=== PATIENT | male | born 1950 | race Caucasian/White ===

== ENCOUNTER 2019-04-22 08:39 | Inpatient (IN) ==
--- NOTE | 2019-04-22 11:39 | Emergency Department Note ---
Skin/Abscess/FB HPI - General Chief complaint: Skin/Abscess/Foreign Body Stated complaint: left hand cellulitis, worse Time Seen by Provider: 04/22/19 11:37 Source: patient Mode of arrival: ambulatory Limitations: no limitations - History of Present Illness HPI Narrative: This patient is rechecking cellulitis of his left hand. He was seen initially Sunday night and got some vancomycin I saw him Sunday morning and he was not much worse we continued Vanco and started Keflex and Bactrim and recheck in 2 days later he is much worse. I discussed the case with Dr. Ewing and we will admit him to the hospital Dr. Wells will see him in the hospital later today. - Related Data Home Medications Medication Instructions Recorded Confirmed Aspirin [Lo-Dose Aspirin EC] 81 mg PO DAILY 04/19/19 04/19/19 Atorvastatin [Lipitor] 20 mg PO HS 04/19/19 04/19/19 Furosemide [Lasix] 20 mg PO DAILY 04/19/19 04/19/19 Insulin Glargine, Human [Lantus] 15 unit SQ HS 04/19/19 04/19/19 Lisinopril [Zestril] 5 mg PO DAILY 04/19/19 04/19/19 Magnesium 250 mg PO 04/19/19 Topiramate [Trokendi Xr] 100 mg PO DAILY 04/19/19 04/19/19 amLODIPine [Norvasc] 10 mg PO DAILY 04/19/19 04/19/19 metFORMIN HCL [Metformin HCl] 1,000 mg PO DAILY 04/19/19 04/19/19 Previous Rx's Medication Instructions Recorded traMADol [Ultram] 50 mg PO Q6-8HP PRN #10 tab 04/19/19 Cephalexin [Keflex] 500 mg PO QID #30 cap 04/20/19 Sulfamethoxazole/Trimethoprim 1 tab PO BID #14 tab 04/20/19 [Bactrim Ds] Allergies Allergy/AdvReac Type Severity Reaction Status Date / Time No Known Drug Allergies Allergy Verified 04/22/19 08:41 Review of Systems All systems ED: reviewed and negative except as stated. Past Medical History - Past Medical History Medical history: Reports: no medical history - Social History smoking status: Former smoker Physical Exam Left hand shows swelling erythema of the dorsal aspect of the hand and fingers and a blister formation on the lateral aspect of the hand with some swelling of the thenar eminence. Limitations: no limitations General appearance: alert Head: atraumatic Neck: Present: normal inspection Neurological: Present: alert Psychiatric: Present: normal affect Skin: Present: warm, dry Course Vital Signs Temperature 97.1 F 04/22/19 08:39 Pulse Rate 88 04/22/19 08:39 Respiratory Rate 16 04/22/19 08:39 Blood Pressure 148/84 04/22/19 08:39 Pulse Oximetry (%) 100 04/22/19 08:39 Temperature 97.1 F 04/22/19 08:39 Pulse Rate 88 04/22/19 08:39 Respiratory Rate 16 04/22/19 08:39 Blood Pressure 148/84 04/22/19 08:39 Pulse Oximetry (%) 100 04/22/19 08:39 Skin/Abscess/Foreign Body - Lab Data Result diagrams: 04/22/19 11:27 04/22/19 11:27 Disposition Pt seen by POLYMER[employer]ATION OVEN TENDER/PA only: No Clinical Impression: Cellulitis Disposition: Xfer As Outpt/Obs (TS) Condition: Good Instructions: Cellulitis (ED) Referrals: Davey Hernandez MD [Primary Care Provider] - Time of Disposition: 11:39
--- NOTE | 2019-04-22 12:15 | Internal Med History&Physical ---
Medical - H&P: HPI Patient information: Note initiated : 04/22/19 at 12:15 pm Service Date, if different from initiated Date: [] Patient: Rayshawn Cho a 68 y/o M admitted on for left hand cellulitis, worse. Chief Complaint: Worsening hand erythema, edema and pain while on outpatient antibiotics History of present illness: Mr. Cho is a 68 year old M with a history of type 2 diabetes, hypertension, hypercholesterolemia who re-presents to the emergency department with worsening left hand symptoms. Patient injured his hand on , it became stuck between 2 metal cabinets. Pulled his hand out, had an open wound on the dorsum of the hand. That became swollen and painful with erythema. He was seen in the ED on Sunday, started on vancomycin as an outpatient for hand cellulitis. He returned on Sunday for a follow-up, at which point it appeared to be about the same and cephalexin and Bactrim were added to the regimen. He continued to come in to receive outpatient IV antibiotics. Yesterday, Sunday, he had worsening erythema, development of a blister at the base of the thumb as well as worsening edema down into the proximal fingers from the dorsum of the hand. He did have some proximal progression of erythema earlier, which has receded slightly. He is tried to keep his hand elevated when at rest. He is unable to flex his finger secondary to edema and pain. He had a fever up to 100.6 degrees yesterday. He had chills a few nights ago. He did have some nausea and vomiting after IV antibiotics yesterday. Has had decreased appetite. Said no diarrhea, no abdominal pain. Patient was told many years ago he may have had a remote myocardial infarction (he was not hospitalized, is unclear why that was thought), but he currently is active and has no chest tightness/squeezing/pressure symptoms and is not limited by dyspnea. No history of lung disease. He occasionally has trace lower extremity edema, particularly associated with an abrasion and cellulitis of his right di stal leg, which has now resolved. He has no history of congestive heart failure, no orthopnea. No history of COPD or other pulmonary disease. His diabetes is controlled with metformin and Lantus and glucose generally runs in the 120s. His last meal was about 8 PM last evening, he did have coffee at 7:00 this morning. No prior history of anesthesia reactions. He is being admitted for surgical debridement of left hand infection that has failed outpatient oral and IV antibiotics. All systems: reviewed and no additional remarkable complaints except as stated Medical - H&P: PMH Medical history: Type 2 diabetes mellitus Hypertension Hypercholesterolemia Migraine Thyroid nodules, next follow-up due 05/12 Surgical history: History of surgery in both feet History of arthroscopic knee surgery History of back surgery History of tonsillectomy Pertinent family history: Several cancers in the family, including breast and female cancers. No history of difficulty healing infections. Social history: Patient is , lives with his . He stopped smoking many years ago. He has a couple drinks on several evenings a week. Medical - H&P: Meds Home Medications Medication Instructions Recorded Confirmed Type Aspirin [Lo-Dose Aspirin EC] 81 mg PO DAILY 04/19/19 04/22/19 History Atorvastatin [Lipitor] 20 mg PO HS 04/19/19 04/22/19 History Furosemide [Lasix] 20 mg PO DAILY 04/19/19 04/22/19 History Insulin Glargine, Human [Lantus] 15 unit SQ HS 04/19/19 04/22/19 History Lisinopril [Zestril] 5 mg PO DAILY 04/19/19 04/22/19 History Magnesium 250 mg PO AC 04/19/19 04/22/19 History Topiramate [Trokendi Xr] 100 mg PO DAILY 04/19/19 04/22/19 History amLODIPine [Norvasc] 10 mg PO DAILY 04/19/19 04/22/19 History metFORMIN HCL [Metformin HCl] 1,000 mg PO DAILY 04/19/19 04/22/19 History traMADol [Ultram] 50 mg PO Q6-8HP PRN #10 tab 04/19/19 04/22/19 Rx Cephalexin [Keflex] 500 mg PO QID #30 cap 04/20/19 04/22/19 Rx Sulfamethoxazole/Trimethoprim 1 tab PO BID #14 tab 04/20/19 04/22/19 Rx [Bactrim Ds] Allergies Allergy/AdvReac Type Severity Reaction Status Date / Time diazepam [From Valium] AdvReac Verified 04/22/19 13:13 Medical - H&P: Exam - Constitutional Vitals: Temp Pulse Resp BP Pulse Ox 97.1 F 88 20 142/80 98 04/22/19 08:39 04/22/19 11:56 04/22/19 11:56 04/22/19 11:56 04/22/19 11:56 Exam: GENERAL: Alert, oriented, in no acute distress. Cooperative, appears stated age. HEENT: Atraumatic. PERRL at 3 mm, conjunctiva clear, no scleral icterus. Hearing grossly intact. Oropharynx with moist mucous membranes, no pharyngeal erythema or exudate. Tongue midline, palate rises symmetrically. NECK: Supple without meningismus RESPIRATORY: Breath sounds clear bilaterally without wheezes or rhonchi. Respiratory effort is unlabored. CARDIOVASCULAR: Regular rate and rhythm, no murmur gallop or rub. Trace peripheral edema. Carotid pulses 2+ without bruit. GI: Abdomen soft, nontender, no guarding or rebound. Bowel sounds are present. MUSCULOSKELETAL: Left hand with approximately 1 cm skin avulsion on mid dorsum, surrounding erythema and bruising, approximately 2 cm bullous lesion over the dorsal base of the thumb, edema palpable out to the proximal phalanx, particularly on the second third and fourth digits. Unable to flex the digits due to swelling. Radial pulse is 2+. SKIN: As above. Distal left leg with very small remnants of abrasion on the spencer. No surrounding erythema in the leg. NEUROLOGIC: Cranial nerves II through XII grossly intact. Muscle mass normal. Strength 5/5 in the upper and lower extremities. Sensation intact to light touch bilaterally. PSYCHIATRIC: Alert, oriented x3, normal mood and affect, normal insight. Medical - H&P: Reslt - Labs CBC & Chem 7: 04/22/19 11:27 04/22/19 11:27 Labs: Laboratory Results - last 24 hr 04/22/19 04/22/19 04/22/19 11:27 11:27 11:27 WBC 14.3 H RBC 4.24 L Hgb 12.7 L Hct 39.0 L MCV 92.0 MCH 30.0 MCHC 32.6 RDW 13.6 Plt Count 304 MPV 9.5 Gran % 74.0 Lymph % (Auto) 15.2 L [place] % (Auto) 8.2 Eos % (Auto) 2.0 Baso % (Auto) 0.6 Gran # 10.57 H Lymph # (Auto) 2.17 [place] # (Auto) 1.17 H Eos # (Auto) 0.28 Baso # (Auto) 0.08 PT 13.4 INR 1.0 VBG Lactic Acid Sodium 137 Potassium 4.2 Chloride 102 Carbon Dioxide 20 L Anion Gap 15.0 BUN 12 Creatinine 0.9 GFR Calculation 89 Glucose 112 H Calcium 9.7 Total Bilirubin 0.5 AST 14 ALT 15 Alkaline Phosphatase 69 Total Protein 7.5 Albumin 3.9 Globulin 3.6 Albumin/Globulin Ratio 1.1 04/22/19 11:27 WBC RBC Hgb Hct MCV MCH MCHC RDW Plt Count MPV Gran % Lymph % (Auto) [place] % (Auto) Eos % (Auto) Baso % (Auto) Gran # Lymph # (Auto) [place] # (Auto) Eos # (Auto) Baso # (Auto) PT INR VBG Lactic Acid 1.0 Sodium Potassium Chloride Carbon Dioxide Anion Gap BUN Creatinine GFR Calculation Glucose Calcium Total Bilirubin AST ALT Alkaline Phosphatase Total Protein Albumin Globulin Albumin/Globulin Ratio - EKG Data -: EKG Reviewed by Myself EKG shows normal: sinus rhythm, ST-T waves Rate: normal - Impressions Left hand film from 04/18, reviewed IMPRESSION: No fracture 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 Cellulitis of the left hand. Failing outpatient IV and oral antibiotics. Dr. Ewing from orthopedics has been consulted and plans surgical debridement. Patient without any pet exposures, suspect this is either related to staph or strep infection from skin break. Plan Inpatient admission N.p.o. Continue vancomycin, begin cefazolin for better strep and MSSA coverage Orthopedic consultation, called by the ED Superficial wound cultured, follow-up data and any intraoperative cultures. Preoperative clearance. Patient has been told he may have had a heart attack in the past. Currently he exerts himself regularly without any anginal symptoms. His EKG does not show evidence of old infarct. He has no history of congestive heart failure no history of lung disease. He does have cardiac risk factors of diabetes, hypertension and hypercholesterolemia, however at this point no further risk stratification needed. Type 2 diabetes. Controlled with metformin and Lantus. Hold metformin with acute illness Continue Lantus Sliding scale insulin, Accu-Cheks, diabetic diet postop Hypertension. On lisinopril and amlodipine. Continue home regimen. Hypercholesterolemia. On statin. Continue atorvastatin CODE STATUS: Full code Prophylaxis: Lovenox ordered for postop administration.
[2019-04-22 12:24] LABS: Basophils # (Auto) 0.08 K/mcL (0.00-0.30); Basophils % (Auto) 0.6 % (0.0-2.0); Eosinophils # (Auto) 0.28 K/mcL (0.00-0.70); Hemoglobin 12.7 g/dL (13.7-17.5); Lymphocytes # (Auto) 2.17 K/mcL (1.50-4.80); Lymphocytes % (Auto) 15.2 % (15.5-49.0); Mean Corpuscular HGB Conc 32.6 g/dL (31.0-36.0); Mean Platelet Volume 9.5 fL (7.4-10.4); Monocytes # (Auto) 1.17 K/mcL (0.10-0.90); Monocytes % (Auto) 8.2 % (1.0-12.0); Platelet Count 304 K/mcL (140-440); RBC 4.24 M/mcL (4.63-6.08); Red Cell Distribution Width 13.6 % (11.5-14.5); WBC 14.3 K/mcL (4.50-11.00)
[2019-04-22] MEDS ORDERED: VANCOMYCIN PER PHARMACY IV SCH (12:25)
[2019-04-22] MEDS ORDERED: ceFAZolin 2 GM in DEXTROSE 5% IN WATER 50 ML IV SCH (12:25)
[2019-04-22] MEDS ORDERED: HYDROcodone/APAP 5/325MG TABLET PO PRN (12:25)
[2019-04-22] MEDS ORDERED: ONDANSETRON 4 MG/2 ML VIAL IV PRN ×3 (12:25→19:55)
[2019-04-22] MEDS ORDERED: ACETAMINOPHEN 325 MG TABLET PO PRN (12:25)
[2019-04-22] MEDS ORDERED: DEXTROSE 50% 50 ML VIAL IV PRN (12:25)
[2019-04-22] MEDS ORDERED: DEXTROSE 31 GM ORAL.SUSP PO PRN (12:25)
[2019-04-22 12:30] LABS: Prothrombin Time 13.4 sec (11.9-14.5)
[2019-04-22 12:34] LABS: ALT/SGPT 15 U/l (0-40); AST/SGOT 14 U/l (0-37); Albumin 3.9 gm/dL (3.2-5.2); Albumin/Globulin Ratio 1.1 (1.0-2.3); Alkaline Phosphatase 69 U/L (39-117); Bilirubin,Total 0.5 mg/dL (0.0-1.0); Blood Urea Nitrogen 12 mg/dl (8-23); Calcium 9.7 mg/dl (8.6-10.4); Carbon Dioxide 20 mmol/L (22-30); Chloride 102 mmol/L (96-108); Globulin 3.6 gm/dL (2.2-3.7); Glomerular Filtration Rate 89; Glucose 112 mg/dL (70-105)
--- NOTE | 2019-04-22 13:13 | Orthopedic Consult Note ---
History of Present Illness - [facility] Patient information: Note initiated : 04/22/19 at 1:07 pm Service Date, if different from initiated Date: [] Patient: Rayshawn Cho 68 y/o M admitted on 04/22/19 for left hand cellulitis, worse. Chief Complaint: right hand pain Consult date: 04/22/19 Requesting physician: Leroy Larson Consult reason: other (right hand pain/swelling) History of present illness: Mr. Cho is a 68 yo male who states he was trying to get a roaster melchor out of the garage on 04/16/19 when his left hand got caught between two cabinets. He states he quickly pulled his hand out resulting in two wounds on the dorsal aspect of his hand. He states he washed these wounds at home and placed a bandaid over them. He noticed his hand start to become red and swollen over the next two days, resulting in a trip to the [facility] ER on 04/19/19. He states he was given IV antibiotics and sent home. He went in for recheck the following day 04/20/19 where he was given a different antibiotic. Since injury he states his hand has become worse and now the pain and swelling is moving to his wrist and into his forearm. He states he felt like he had fevers/chills once or twice over the past day or two. He denies other injuries this afternoon, denies CP, SOB, N/V, abd pain. Review of Systems All systems PM: reviewed and no additional remarkable complaints except as stated (as noted in HPI.) Past History Past medical history: Significant for HTN, hypercholesterolemia, diabetes mellitus type II Past surgical history: tonsillectomy right knee arthroscopy with meniscectomy bilateral foot surgery lumbar spine surgery Past family history: no pertinent family history Past social history: Past smoker. Quit: 1-2 alcoholic drinks/night. No illicit/recreational drug use. Medications and Allergies Home Medications Medication Instructions Recorded Confirmed Type Aspirin [Lo-Dose Aspirin EC] 81 mg PO DAILY 04/19/19 04/19/19 History Atorvastatin [Lipitor] 20 mg PO HS 04/19/19 04/19/19 History Furosemide [Lasix] 20 mg PO DAILY 04/19/19 04/19/19 History Insulin Glargine, Human [Lantus] 15 unit SQ HS 04/19/19 04/19/19 History Lisinopril [Zestril] 5 mg PO DAILY 04/19/19 04/19/19 History Magnesium 250 mg PO 04/19/19 History Topiramate [Trokendi Xr] 100 mg PO DAILY 04/19/19 04/19/19 History amLODIPine [Norvasc] 10 mg PO DAILY 04/19/19 04/19/19 History metFORMIN HCL [Metformin HCl] 1,000 mg PO DAILY 04/19/19 04/19/19 History traMADol [Ultram] 50 mg PO Q6-8HP PRN #10 tab 04/19/19 Rx Cephalexin [Keflex] 500 mg PO QID #30 cap 04/20/19 Rx Sulfamethoxazole/Trimethoprim 1 tab PO BID #14 tab 04/20/19 Rx [Bactrim Ds] Allergies Allergy/AdvReac Type Severity Reaction Status Date / Time diazepam [From Valium] AdvReac Verified 04/22/19 13:13 Physical Examination - Wrist & Hand right Location of pain: dorsal wrist, dorsal hand Wrist pain modifiers: with motion, with activity Symptoms: wrist swelling, wrist stiffness, dorsal hand swelling, palmar hand swelling, hand stiffness, hand weakness, tingling in ring, small fingers, other (tingling in all fingers except the thumb.) Appearance: wrist redness, wrist erythema, wrist warmth (diffuse), hand redness, hand erythema (isolated to dorsal aspect of hand/digits/wrist), hand warmth (diffuse), laceration (two dorsal hand wounds, lateral has scab, medial is subacute, open with expressible serous drainage. No purulence or fluctuance noted. ), other (large blister over thenar eminence. Diffuse edema about entire hand both palmar/dorsal.) Wound/scarring location: medial dorsal hand wound is approx dime sized, 4 mm deep Tenderness with palpation: dorsal wrist, volar wrist, dorsal hand, volar hand, other (Positive TTP over entire dorsal hand, wrist, and forearm. No TTP at the elbow.) Full ROM: wrist: yes (near full ROM though painful) ROM: thumb MP joint: 0 degrees ROM: thumb IP joint: normal (he is unable to make a full fist or flat hand due to edema. Full nonpainful ROM at elbow.) Assessment and Plan (1) Abscess of hand, left Pt is a 68 yo male 6 days out from initial laceration/wounds to the left hand resulting in a left hand abscess and cellulitis that has not improved with IV antibiotics. Wound culture was obtained in the ER today. Discussed the condition and treatment options with the pt today with recommendation for surgical irrigation and debridement of the left hand abscess and extensor tendons and insertion of wound drain followed by IV abx and continued hospitalization. Spoke with Dr. Ewing who agrees with the plan. Pt was in agreement and would like to continue with surgery. Discussed the risks associated with surgery which include but are not limited to: problems with anesthesia, problems with the heart or lungs related to anesthesia, DVT, PE, ongoing pain/swelling after surgery, infection, need for repeat surgery, failure of hardware and . He wishes to proceed with surgery. Plan will be for left hand abscess I&D along with debridement of extensor tendons. Pt understands and agrees with the plan. His questions were answered. Status: Acute
[2019-04-22] MEDS: 0.9 % SODIUM CHLORIDE 1,000 ML IV SCH (13:22)
[2019-04-22] MEDS ORDERED: VANCOMYCIN 1,000 MG in 0.9 % SODIUM CHLORIDE 250 ML IV ONE (13:45)
[2019-04-22] MEDS: 0.9 % SODIUM CHLORIDE 10 ML SYRINGE IV SCH ×2 (14:37→21:35)
[2019-04-22] MEDS: ceFAZolin 1 GM VIAL IV SCH ×2 (14:45→21:34)
[2019-04-22 16:19] LABS: Appearance,Urine CLEAR; Bacteria,Urine 0 /hpf (0); Bilirubin,Urine NEG (NEG); Color,Urine YELLOW; Culture Indicated,Urine NO; Glucose,Urine (UA) NEGATIVE (NEG); Ketones,Urine 5/TR mg/dL (NEG); Leukocyte Esterase,Urine NEG /uL (NEG); Mucus,Urine FEW /hpf (0); Nitrate,Urine NEG (NEG); Protein,Urine 30 mg/dL (NEG); Specific Gravity,Urine 1.016 (1.000-1.035); Urine Blood NEG mg/dL (<0.03); Urine RBC 2 /hpf (0-1); Urine Squamous Epithelial Cell 0 /hpf (0-4); Urine WBC 1 /hpf (0-4)
[2019-04-22] MEDS: INSULIN LISPRO 1 UNIT/0.01 ML UNIT SQ SCH ×2 (16:35→21:28)
[2019-04-22] MEDS ORDERED: PROPOFOL 200 MG/20 ML VIAL IV ONE (18:38)
[2019-04-22] MEDS ORDERED: ONDANSETRON 4 MG/2 ML VIAL ONE (18:38)
[2019-04-22] MEDS ORDERED: fentaNYL 100 MCG/2 ML VIAL IV ONE (18:38)
[2019-04-22] MEDS ORDERED: DEXAMETHASONE 10 MG/ML VIAL ONE (18:38)
[2019-04-22] MEDS ORDERED: MIDAZOLAM 5 MG/5 ML VIAL ONE (18:38)
[2019-04-22] MEDS ORDERED: LIDOCAINE HCL/PF 100 MG/5 ML SYRINGE IV ONE (18:38)
[2019-04-22] MEDS ORDERED: IPRATROPIUM/ALBUTEROL 3 ML AMPUL.NEB NEB PRN (19:21)
[2019-04-22] MEDS ORDERED: MEPERIDINE 25 MG/ML SYRINGE IV PRN (19:21)
[2019-04-22] MEDS ORDERED: ATROPINE SULFATE 0.4 MG/ML VIAL IV PRN (19:21)
[2019-04-22] MEDS ORDERED: fentaNYL 100 MCG/2 ML VIAL IV PRN (19:21)
[2019-04-22] MEDS ORDERED: METOPROLOL TARTRATE 5 MG/5 ML VIAL IV PRN (19:21)
[2019-04-22] MEDS ORDERED: diphenhydrAMINE 50 MG/ML VIAL IV PRN (19:21)
[2019-04-22] MEDS ORDERED: FLUMAZENIL 0.1 MG/ML ML IV PRN (19:21)
[2019-04-22] MEDS ORDERED: ACETAMINOPHEN 1,000 MG/100 ML BOTTLE IV ONE ×2 (19:21→19:50)
[2019-04-22] MEDS ORDERED: ePHEDrine 50 MG/ML AMPUL IV PRN (19:21)
[2019-04-22] MEDS ORDERED: NALOXONE HCL 0.4 MG/ML VIAL IV PRN (19:21)
[2019-04-22] MEDS ORDERED: METHOCARBAMOL 1,000 MG/10 ML VIAL IV PRN (19:21)
[2019-04-22] MEDS ORDERED: LACTATED RINGERS 1,000 ML IV SCH (19:30)
[2019-04-22] MEDS ORDERED: BENZOCAINE/MENTHOL 1 LOZENGE PO PRN (19:55)
--- NOTE | 2019-04-22 20:06 | Discharge Summary ---
Ortho Discharge Plan - General - Patient Instructions Diet: Consistent Carbohydrate Activity: activity as tolerated Dressing Care: Cover dressing in shower Patient Education: Cellulitis (ED) - Follow Up Plan Follow Up Appointments: Davey Hernandez MD [Primary Care Provider] - Rebel Ewing MD [Physician] - 04/29/19 (Follow up ANTONY 04/29/19) Disposition: Home, Self-Care Prognosis: Good Rehab Potential: Good I certify that the patient requires SNF services: No Overall status at discharge: patient is back to baseline - Orders For Discharge Prescriptions: Hydrocodone/APAP 7.5/325Mg [[place] 7.5-325Mg] 1 - 2 tab PO Q4-6HP PRN #65 tab PRN Reason: Pain
--- NOTE | 2019-04-22 20:09 | Brief Operative Note ---
Date of procedure: 04/22/19 Pre-op diagnosis: L Hand Dorsal Abscess, L Hand Suppurative Extensor Tenosynovitis Post-op diagnosis: same Procedure: 1. Debridement and irrigation of left hand deep dorsal abscess 2. Debridement and irrigation of left hand extensor tendon sheath Grafts/Implants: No Anesthesia: GLMA Findings: as above Complications: none Surgeon: Rebel Ewing Workforce Staffing Advisor: Josep Estrada Estimated blood loss (cc): 6 Tourniquet Time (Minutes): 32 Specimens Removed/Pathology: other (Aerobic/Anaerobic cultures left hand deep dorsal abscess) Condition: stable Disposition: PACU
[2019-04-22] MEDS ORDERED: MEPERIDINE 50 MG/ML INJECTION ONE (20:12)
[2019-04-22] MEDS ORDERED: INSULIN GLARGINE, HUMAN 1 UNIT/0.01 ML SQ SCH (21:00)
[2019-04-22] MEDS: ATORVASTATIN 20 MG TABLET PO SCH (21:25)
[2019-04-22] MEDS: SENNOSIDES 1 TABLET PO SCH (21:25)
[2019-04-22] MEDS: DOCUSATE SODIUM 100 MG CAPSULE PO SCH (21:25)
[2019-04-22] MEDS: VANCOMYCIN 1,500 MG in 0.9 % SODIUM CHLORIDE 500 ML IV SCH (21:38)
[2019-04-22] MEDS ORDERED: 0.9 % SODIUM CHLORIDE 10 ML SYRINGE IV SCH (22:00)
[2019-04-23] MEDS: HYDROCODONE/APAP 7.5/325MG TABLET PO PRN ×4 (04:02→21:27)
[2019-04-23] MEDS: ceFAZolin 1 GM VIAL IV SCH ×3 (06:12→21:14)
[2019-04-23] MEDS: 0.9 % SODIUM CHLORIDE 10 ML SYRINGE IV SCH ×3 (06:13→21:14)
[2019-04-23 06:34] LABS: Basophils # (Auto) 0.03 K/mcL (0.00-0.30); Basophils % (Auto) 0.2 % (0.0-2.0); Eosinophils # (Auto) 0.01 K/mcL (0.00-0.70); Eosinophils % (Auto) 0.1 % (0.0-7.0); Granulocytes % (Auto) 89.9 % (38.0-78.0); Hematocrit 38.1 % (40.1-51.0); Hemoglobin 12.4 g/dL (13.7-17.5); Lymphocytes # (Auto) 0.93 K/mcL (1.50-4.80); Lymphocytes % (Auto) 6.9 % (15.5-49.0); Mean Cell Volume 93.2 fL (80.0-100.0); Mean Corpuscular HGB Conc 32.5 g/dL (31.0-36.0); Mean Platelet Volume 9.8 fL (7.4-10.4); Monocytes # (Auto) 0.39 K/mcL (0.10-0.90); Monocytes % (Auto) 2.9 % (1.0-12.0); Platelet Count 303 K/mcL (140-440); RBC 4.09 M/mcL (4.63-6.08); Red Cell Distribution Width 13.5 % (11.5-14.5); WBC 13.4 K/mcL (4.50-11.00)
[2019-04-23 06:45] LABS: Blood Urea Nitrogen 15 mg/dl (8-23); Calcium 9.1 mg/dl (8.6-10.4); Carbon Dioxide 16 mmol/L (22-30); Chloride 104 mmol/L (96-108); Glomerular Filtration Rate 93; Glucose 252 mg/dL (70-105)
[2019-04-23] MEDS: ENOXAPARIN 40 MG/0.4 ML SYRINGE SQ SCH (08:52)
[2019-04-23] MEDS: INSULIN LISPRO 1 UNIT/0.01 ML UNIT SQ SCH ×4 (08:53→21:26)
[2019-04-23] MEDS: INSULIN GLARGINE, HUMAN 1 UNIT/0.01 ML SQ SCH (08:53)
[2019-04-23] MEDS: LISINOPRIL 5 MG TABLET PO SCH (08:54)
[2019-04-23] MEDS: 0.9 % SODIUM CHLORIDE 1,000 ML IV SCH ×2 (08:54→14:41)
[2019-04-23] MEDS: amLODIPine 10 MG TABLET PO SCH (08:54)
[2019-04-23] MEDS: DOCUSATE SODIUM 100 MG CAPSULE PO SCH ×2 (08:54→21:13)
[2019-04-23] MEDS: TOPIRAMATE 100 MG PO SCH (08:55)
--- NOTE | 2019-04-23 09:51 | Orthopedic Progress Note ---
Subjective Patient information: Note initiated : 04/23/19 at 9:51 am Service Date, if different from initiated Date: [] Patient: Rayshawn Cho 68 y/o M admitted on 04/22/19 for left hand cellulitis. He is POD#1 s/p left hand abscess I&D along with extensor tendon debridement with Dr. Ewing. His pain is managed this AM and states he is feeling better. Denies SOB, CP, N/V, abd pain. States the tingling in his fingers is much better this AM as well. Denies new complaints overnight. Chief Complaint: right hand pain. Pertinent ROS: negative except per HPI. Objective Vital signs: Vital Signs Temp Pulse Pulse Pulse Resp BP BP 04/23/19 03:55 97.3 F 65 16 04/22/19 23:36 80 16 04/22/19 21:36 79 04/22/19 21:21 79 04/22/19 21:07 78 04/22/19 20:51 75 04/22/19 20:36 74 04/22/19 20:35 98.8 F 74 16 04/22/19 20:30 98.4 F 75 18 04/22/19 20:14 98.4 F 77 12 04/22/19 20:09 98.6 F 79 15 04/22/19 20:04 98.5 F 79 17 04/22/19 20:00 04/22/19 19:59 98.1 F 85 15 04/22/19 19:54 98.6 F 76 16 04/22/19 16:00 97.8 F 84 16 04/22/19 12:34 97.8 F 83 16 134/78 04/22/19 12:20 97.8 F 83 18 04/22/19 12:19 97.1 F 88 20 142/80 04/22/19 11:56 88 20 142/80 BP Pulse Ox 04/23/19 03:55 132/78 96 04/22/19 23:36 130/69 91 04/22/19 21:36 129/71 95 04/22/19 21:21 131/69 96 04/22/19 21:07 129/73 96 04/22/19 20:51 148/77 96 04/22/19 20:36 136/79 95 04/22/19 20:35 136/79 95 04/22/19 20:30 131/66 95 04/22/19 20:14 122/61 94 04/22/19 20:09 134/69 95 04/22/19 20:04 137/64 95 04/22/19 20:00 96 04/22/19 19:59 132/64 94 04/22/19 19:54 141/76 96 04/22/19 16:00 144/79 97 04/22/19 12:34 97 04/22/19 12:20 134/78 97 04/22/19 12:19 98 04/22/19 11:56 98 Intake and Output 04/22/19 04/23/19 04/23/19 21:59 05:59 13:59 Intake Total 539 840 480 Output Total 1075 1300 Balance -536 -460 480 Intake: IV 539 640 Sodium Chloride 0.9% 1,000 ml @ 360 640 75 mls/hr IV .[id number] [facility] Rx#: [id number] Vancomycin 1,000 mg In Sodium 79 Chloride 0.9% 250 ml @ 250 mls/ hr IV ONCE ONE Rx#:[id number] Oral 200 480 Output: Void Amount 1075 1300 Other: Urine Appearance Clear Urine Color Dark Yellow Urine Odor Strong Weight 265 lb 12.8 oz Intake & Output: Intake & Output 04/22/19 04/23/19 04/23/19 21:59 05:59 13:59 Intake Total 539 840 480 Output Total 1075 1300 Balance -536 -460 480 Weight 265 lb 12.8 oz Intake: IV 539 640 Sodium Chloride 0.9% 1,000 ml @ 360 640 75 mls/hr IV .[id number] [facility] Rx#: [id number] Vancomycin 1,000 mg In Sodium 79 Chloride 0.9% 250 ml @ 250 mls/ hr IV ONCE ONE Rx#:[id number] Oral 200 480 Output: Void Amount 1075 1300 Other: Urine Appearance Clear Urine Color Dark Yellow Urine Odor Strong Dressing: Yes clean, Yes dry, Yes intact, Yes splint in place Weight bearing status: non (with LUE) Neurological exam IM: Yes alert, Yes oriented X3, Yes neurovascular intact Extremities exam IM: No calf tenderness, Yes normal capillary refill, No Freddie's sign, Yes neurovascular intact - Labs CBC & BMP: 04/23/19 04:55 01/01/20 04:55 Labs: Orthopedic Labs 04/22/19 11:27 PT 13.4 INR 1.0 04/23/19 04/22/19 04:55 11:27 Hgb 12.4 L 12.7 L Hct 38.1 L 39.0 L Assessment and Plan (1) Abscess of hand, left Status: Acute - Narrative A/P Narrative: Pt is a 68 yo male POD#1 s/p left hand abscess I&D along with extensor tendon debridement with Dr. Ewing. We will plan on continued hospitalization over the next few days for continued IV abx while intraoperative wound culture is pending. Currently receiving Ancef. Hospitalist also following and will defer final abx to hospitalist pending culture results. WBC trending downwards this AM at 13.4. --activity as tolerated, NWB with LUE. --keep splint in place, keep clean and dry. --continue pain medications --continue CC diet. --prophy: IS, SCDs, ambulation, Lovenox. --dispo: home when infection controlled.
[2019-04-23] MEDS: VANCOMYCIN 1,500 MG in 0.9 % SODIUM CHLORIDE 500 ML IV SCH ×2 (10:50→21:12)
[2019-04-23] MEDS: HYDROmorphone 2 MG/ML VIAL IV PRN ×2 (13:26→17:00)
--- NOTE | 2019-04-23 16:03 | Orthopedic Progress Note ---
Subjective Patient information: Note initiated : 04/23/19 at 4:01 pm Service Date, if different from initiated Date: [] Patient: Rayshawn Cho 68 y/o M admitted on 04/22/19 for left hand cellulitis. Chief Complaint: [] Principal diagnosis: Left dorsal hand deep abscess, suppurative extensor tenosynovitis Interval history: Patient doing well, good pain control. No fevers or chills. Taking po well Objective Vital signs: Vital Signs Temp Pulse Resp BP Pulse Ox 04/23/19 12:00 97.8 F 72 16 123/66 94 04/23/19 10:03 94 04/23/19 08:00 97.5 F 77 16 137/77 96 04/23/19 03:55 97.3 F 65 16 132/78 96 04/22/19 23:36 80 16 130/69 91 04/22/19 21:36 79 129/71 95 04/22/19 21:21 79 131/69 96 04/22/19 21:07 78 129/73 96 04/22/19 20:51 75 148/77 96 04/22/19 20:36 74 136/79 95 04/22/19 20:35 98.8 F 74 16 136/79 95 04/22/19 20:30 98.4 F 75 18 131/66 95 04/22/19 20:14 98.4 F 77 12 122/61 94 04/22/19 20:09 98.6 F 79 15 134/69 95 04/22/19 20:04 98.5 F 79 17 137/64 95 04/22/19 20:00 96 04/22/19 19:59 98.1 F 85 15 132/64 94 04/22/19 19:54 98.6 F 76 16 141/76 96 Intake and Output 04/23/19 04/23/19 04/23/19 05:59 13:59 21:59 Intake Total 1340 1040 1300 Output Total 1300 Balance 40 1040 1300 Intake: IV 1140 500 Sodium Chloride 0.9% 1,000 ml @ 640 75 mls/hr IV .[id number] [facility] Rx#: [id number] Vancomycin 1,500 mg In Sodium 500 500 Chloride 0.9% 500 ml @ 333.3 mls/hr IV Q12H [facility] Rx#: [id number] Oral 200 1040 800 Output: Void Amount 1300 Other: Meal Breakfast Percent of Meal Consumed 100% Feeding Ability Independent Intake & Output: Intake & Output 04/23/19 04/23/19 04/23/19 05:59 13:59 21:59 Intake Total 1340 1040 1300 Output Total 1300 Balance 40 1040 1300 Intake: IV 1140 500 Sodium Chloride 0.9% 1,000 ml @ 640 75 mls/hr IV .[id number] [facility] Rx#: [id number] Vancomycin 1,500 mg In Sodium 500 500 Chloride 0.9% 500 ml @ 333.3 mls/hr IV Q12H [facility] Rx#: [id number] Oral 200 1040 800 Output: Void Amount 1300 Other: Meal Breakfast Percent of Meal Consumed 100% Feeding Ability Independent Dressing: Yes clean, Yes dry, Yes intact, Yes splint in place Weight bearing status: as tolerated Neurological exam IM: Yes alert, Yes oriented X3, Yes neurovascular intact - Labs CBC & BMP: 04/23/19 04:55 04/23/19 04:55 Labs: Orthopedic Labs 04/22/19 11:27 PT 13.4 INR 1.0 04/23/19 04/22/19 04:55 11:27 Hgb 12.4 L 12.7 L Hct 38.1 L 39.0 L Assessment and Plan - Narrative A/P Narrative: POD #1 s/p I&D left dorsal hand abscess and extensor tendon sheath doing well. Good pain control. Plan: 1. Continue IV antibiotics as per Hospitalist 2. Dressing change and drain removal 04/25/19 3. Consider D/C 04/25/19
--- NOTE | 2019-04-23 16:34 | Internal Med Progress Note ---
Medical - PN: Subj Patient information: Note initiated : 04/23/19 at 4:31 pm Service Date, if different from initiated Date: [] Patient: Rayshawn Cho a 68 y/o M admitted on 04/22/19 for left hand cellulitis, worse. Chief Complaint: f/u hand infection Interval history: 04/22 Mr. Cho is a 68 year old M with a history of type 2 diabetes, hypertension, hypercholesterolemia who re-presents to the emergency department with worsening left hand symptoms. Patient injured his hand on , it became stuck between 2 metal cabinets. Pulled his hand out, had an open wound on the dorsum of the hand. That became swollen and painful with erythema. He was seen in the ED on Sunday, started on vancomycin as an outpatient for hand cellulitis. He returned on Sunday for a follow-up, at which point it appeared to be about the same and cephalexin and Bactrim were added to the regimen. He continued to come in to receive outpatient IV antibiotics. Yesterday, Sunday, he had worsening erythema, development of a blister at the base of the thumb as well as worsening edema down into the proximal fingers from the dorsum of the hand. He did have some proximal progression of erythema earlier, which has receded slightly. He is tried to keep his hand elevated when at rest. He is unable to flex his finger secondary to edema and pain. He had a fever up to 100.6 degrees yesterday. He had chills a few nights ago. He did have some nausea and vomiting after IV antibiotics yesterday. Has had decreased appetite. Said no diarrhea, no abdominal pain. Patient was told many years ago he may have had a remote myocardial infarction (he was not hospitalized, is unclear why that was thought), but he currently is active and has no chest tightness/squeezing/pressure symptoms and is not limited by dyspnea. No history of lung disease. He occasionally has trace lower extremity edema, particularly associated with an abrasion and cellulitis of his right distal leg, which has now resolved. He has no history of congestive heart failure, no orthopnea. No history of COPD or other pulmonary disease. His d iabetes is controlled with metformin and Lantus and glucose generally runs in the 120s. 04/23/2019 Doing well this afternoon, pain is controlled. No fevers. - Constitutional Vitals: Vital Signs Temp Pulse Resp BP Pulse Ox 97.8 F 72 16 123/66 94 04/23/19 12:00 04/23/19 12:00 04/23/19 12:00 04/23/19 12:00 04/23/19 12:00 Period Temp Pulse Resp BP Sys/Tomas Pulse Ox Last 24 Hr 97.3 F-98.8 F 65-85 12-18 122-148/61-79 91-96 Intake and Output 04/23/19 04/23/19 04/23/19 05:59 13:59 21:59 Intake Total 1340 1040 1300 Output Total 1300 Balance 40 1040 1300 Intake & Output: Intake & Output 04/23/19 04/23/19 04/23/19 05:59 13:59 21:59 Intake Total 1340 1040 1300 Output Total 1300 Balance 40 1040 1300 Intake: IV 1140 500 Sodium Chloride 0.9% 1,000 ml @ 640 75 mls/hr IV .[id number] [facility] Rx#: [id number] Vancomycin 1,500 mg In Sodium 500 500 Chloride 0.9% 500 ml @ 333.3 mls/hr IV Q12H [facility] Rx#: [id number] Oral 200 1040 800 Output: Void Amount 1300 Other: Meal Breakfast Percent of Meal Consumed 100% Feeding Ability Independent Exam: General: No acute distress Chest: Clear Cardiovascular: Regular Abdomen: Soft, active bowel sounds Extremities: Left upper extremity with surgical dressings on. Fingers warm and perfused, touch intact Neuro: Alert, oriented x3, nonfocal Medical - PN: Obj Da - Labs CBC & Chem 7: 04/23/19 04:55 04/23/19 04:55 Labs: Abnormal Lab Results 04/23/19 04/23/19 04/22/19 04:55 04:55 15:46 WBC 13.4 H RBC 4.09 L Hgb 12.4 L Hct 38.1 L Gran % 89.9 H Lymph % (Auto) 6.9 L Gran # 12.03 H Lymph # (Auto) 0.93 L Fannin # (Auto) Carbon Dioxide 16 L Glucose 252 H Urine Protein 30 A Urine Ketones 5/tr A Urine Urobilinogen 4.0 A Urine RBC 2 H 04/22/19 04/22/19 11:27 11:27 WBC 14.3 H RBC 4.24 L Hgb 12.7 L Hct 39.0 L Gran % Lymph % (Auto) 15.2 L Gran # 10.57 H Lymph # (Auto) Fannin # (Auto) 1.17 H Carbon Dioxide 20 L Glucose 112 H Urine Protein Urine Ketones Urine Urobilinogen Urine RBC Microbiology 04/22/19 19:10 Gram Stain - Final Hand - Left Abscess Culture - Preliminary 04/22/19 12:57 Gram Stain - Final Hand - Left Wound Culture - Preliminary 04/22/19 19:10 Gram Stain - Final Abscess - Left Anaerobic Culture - Preliminary Meds: Medications Acetaminophen (Tylenol) 650 mg PO Q6HP PRN; Protocol PRN Reason: Per Pain Protocol/Fever > 101 Hydrocodone Bitart/Acetaminophen (Taft 7.5/325mg) 0 tab PO Q4HP PRN; Protocol PRN Reason: Per Pain Protocol Last Admin: 04/23/19 15:12 Dose: 2 tab Documented by: Amlodipine Besylate (Norvasc) 10 mg PO DAILY [facility] Last Admin: 04/23/19 08:54 Dose: 10 mg Documented by: Atorvastatin Calcium (Lipitor) 20 mg PO HS [facility] Last Admin: 04/22/19 21:25 Dose: 20 mg Documented by: Cefazolin Sodium (Ancef) 2 gm IV Q8H [facility] Last Admin: 04/23/19 13:20 Dose: 2 gm Documented by: Dextrose (Dextrose 50%) 0 ml IV UD PRN PRN Reason: Hypoglycemia Diagnostic Test (Pha) (Accu-Chek) 1 each FS ACHS [facility] Last Admin: 04/23/19 11:45 Dose: 1 each Documented by: Docusate Sodium (Colace) 100 mg PO BID [facility] Last Admin: 04/23/19 08:54 Dose: 100 mg Documented by: Enoxaparin Sodium (Lovenox) 40 mg SQ DAILY [facility] Last Admin: 04/23/19 08:52 Dose: 40 mg Documented by: Glucose (Insta-Glucose) 15 gm PO PRN PRN PRN Reason: Hypoglycemia Hydromorphone HCl (Dilaudid) 0 mg IV Q2HP PRN; Protocol PRN Reason: Per Pain Protocol Last Admin: 04/23/19 13:26 Dose: 1 mg Documented by: Sodium Chloride (Sodium Chloride 0.9%) 1,000 mls @ 75 mls/hr IV .[id number] [facility] Last Admin: 04/23/19 14:41 Dose: Not Given Documented by: Vancomycin HCl 1,500 mg/ (Sodium Chloride) 500 mls @ 333.3 mls/hr IV Q12H [facility] Last Infusion: 04/23/19 14:44 Dose: Infused Documented by: Insulin Glargine (Lantus) 15 unit SQ DAILY [facility] Last Admin: 04/23/19 08:53 Dose: 15 units Documented by: Insulin Human Lispro (Humalog) 0 unit SQ ACHS [facility]; Protocol Last Admin: 04/23/19 12:28 Dose: 8 units Documented by: Lisinopril (Zestril) 5 mg PO DAILY [facility] Last Admin: 04/23/19 08:54 Dose: 5 mg Documented by: Morphine Sulfate (Morphine) 4 mg IV Q4HP PRN; Protocol PRN Reason: Per Pain Protocol Last Admin: 04/22/19 13:29 Dose: 4 mg Documented by: Ondansetron HCl (Zofran) 4 mg IV Q4HP PRN; Protocol PRN Reason: Nausea And Vomiting Topiramate [Trokendi (Xr] 100 Mg Tab) 1 dose PO DAILY [facility] Last Admin: 04/23/19 08:55 Dose: Not Given Documented by: Senna (Senokot) 2 tab PO HS [facility] Last Admin: 04/22/19 21:25 Dose: 2 tab Documented by: Sodium Chloride (Saline Flush) 10 ml IV Q8 [facility] Last Admin: 04/23/19 13:27 Dose: Not Given Documented by: Throat Lozenges (Cepacol) 1 lozenge PO PRN PRN PRN Reason: Sore Throat Vancomycin HCl (Vancomycin Per Pharmacy) 1 order IV UD [facility]; Protocol Medical - PN: A/P - Time Spent With Patient Total time spent is greater than 50% in coordination of care (as documented) at patient's floor/unit and/or counseling patient: 25 - 35 minutes - Narrative A/P Narrative: 68-year-old male with progressive erythema, swelling, now blistering of the left hand following injury when it became trapped between a metal cabinet. Cellulitis of the left hand with deep infection, tenosynovitis found i ntraoperatively. Failed outpatient IV and oral antibiotics. Status post I&D by Dr. Ewing. Patient without any pet exposures, suspect this is either related to staph or strep infection from skin break. Postop day #1 status post I&D Plan Continue vancomycin and cefazolin Wound management per orthopedics Gram stain with GPC's, follow-up cultures Type 2 diabetes. Controlled with metformin and Lantus. Hold metformin with acute illness Continue Lantus Sliding scale insulin, Accu-Cheks, diabetic diet postop Hypertension. On lisinopril and amlodipine. Continue home regimen. Hypercholesterolemia. On statin. Continue atorvastatin CODE STATUS: Full code Prophylaxis: Lovenox Medical - PN: Qual - Stroke Symptom Onset Unknown: No - VTE Deep Vein Thrombosis/Pulmonary Embolism Present on Admission: No
[2019-04-23] MEDS: ATORVASTATIN 20 MG TABLET PO SCH (21:13)
[2019-04-23] MEDS: SENNOSIDES 1 TABLET PO SCH (21:13)
[2019-04-24] MEDS: 0.9 % SODIUM CHLORIDE 1,000 ML IV SCH ×2 (01:24→18:23)
[2019-04-24] MEDS: HYDROCODONE/APAP 7.5/325MG TABLET PO PRN ×4 (04:11→21:06)
[2019-04-24] MEDS: ceFAZolin 1 GM VIAL IV SCH ×2 (05:55→14:53)
[2019-04-24] MEDS: 0.9 % SODIUM CHLORIDE 10 ML SYRINGE IV SCH ×3 (05:56→23:08)
--- NOTE | 2019-04-24 06:58 | Orthopedic Progress Note ---
Subjective Patient information: Note initiated : 04/24/19 at 6:55 am Service Date, if different from initiated Date: [] Patient: Rayshawn Cho 68 y/o M admitted on 04/22/19 for Left hand cellulitis and abscess. He is POD #2 s/p I&D left dorsal hand abscess and extensor tendon sheath doing well. His pain is managed. Denies SOB, CP, fevers/chills, N/V, new complaints overnight. Chief Complaint:left hand pain. Principal diagnosis: Left dorsal hand deep abscess, suppurative extensor tenosynovitis Pertinent ROS: negative except per HPI. Objective Vital signs: Vital Signs Temp Pulse Resp BP Pulse Ox 04/24/19 04:14 97.7 F 70 14 140/81 96 04/23/19 22:53 98.5 F 66 12 110/64 95 04/23/19 18:39 98.1 F 69 12 108/53 95 04/23/19 16:00 97.4 F 73 16 124/65 96 04/23/19 12:00 97.8 F 72 16 123/66 94 04/23/19 10:03 94 04/23/19 08:00 97.5 F 77 16 137/77 96 Intake and Output 04/23/19 04/24/19 04/24/19 21:59 05:59 13:59 Intake Total 1840 1200 Output Total 1750 Balance 1840 -550 Intake: IV 500 1000 Sodium Chloride 0.9% 1,000 ml @ 1000 75 mls/hr IV .[id number] [facility] Rx#: [id number] Vancomycin 1,500 mg In Sodium 500 Chloride 0.9% 500 ml @ 333.3 mls/hr IV Q12H [facility] Rx#: [id number] Oral 1340 200 Output: Void Amount 1750 Other: Meal Dinner Percent of Meal Consumed 25% Urine Appearance Clear Urine Color Bright Yellow Urine Odor Normal Weight 267 lb 3.2 oz Intake & Output: Intake & Output 04/23/19 04/24/19 04/24/19 21:59 05:59 13:59 Intake Total 1840 1200 Output Total 1750 Balance 1840 -550 Weight 267 lb 3.2 oz Intake: IV 500 1000 Sodium Chloride 0.9% 1,000 ml @ 1000 75 mls/hr IV .[id number] [facility] Rx#: [id number] Vancomycin 1,500 mg In Sodium 500 Chloride 0.9% 500 ml @ 333.3 mls/hr IV Q12H [facility] Rx#: [id number] Oral 1340 200 Output: Void Amount 1750 Other: Meal Dinner Percent of Meal Consumed 25% Urine Appearance Clear Urine Color Bright Yellow Urine Odor Normal Dressing: Yes clean, Yes dry, Yes intact, Yes splint in place Weight bearing status: as tolerated (NWb with LUE) Neurological exam IM: Yes alert, Yes oriented X3 Extremities exam IM: No calf tenderness, No Freddie's sign, Yes neurovascular intact - Labs CBC & BMP: 04/23/19 04:55 04/23/19 04:55 Labs: Orthopedic Labs 04/22/19 11:27 PT 13.4 INR 1.0 04/24/19 04/23/19 04/22/19 05:50 04:55 11:27 Hgb Pending 12.4 L 12.7 L Hct Pending 38.1 L 39.0 L Assessment and Plan (1) Abscess of hand, left Plan: --Continue IV antibiotics as per Hospitalist --continue pain medications --continue CC diet --dressing change and drain removal 04/25/19 --continue DVT prophylaxis --dispo:consider D/C 04/25/19 Status: Acute
[2019-04-24 07:15] LABS: Basophils # (Auto) 0.06 K/mcL (0.00-0.30); Basophils % (Auto) 0.5 % (0.0-2.0); Eosinophils # (Auto) 0.25 K/mcL (0.00-0.70); Eosinophils % (Auto) 2.2 % (0.0-7.0); Granulocytes % (Auto) 64.7 % (38.0-78.0); Hematocrit 33.6 % (40.1-51.0); Lymphocytes # (Auto) 2.88 K/mcL (1.50-4.80); Lymphocytes % (Auto) 25.4 % (15.5-49.0); Mean Cell Volume 92.3 fL (80.0-100.0); Mean Corpuscular HGB Conc 32.7 g/dL (31.0-36.0); Mean Platelet Volume 9.7 fL (7.4-10.4); Monocytes # (Auto) 0.82 K/mcL (0.10-0.90); Monocytes % (Auto) 7.2 % (1.0-12.0); Platelet Count 335 K/mcL (140-440); RBC 3.64 M/mcL (4.63-6.08); Red Cell Distribution Width 13.7 % (11.5-14.5); WBC 11.4 K/mcL (4.50-11.00)
[2019-04-24 07:33] LABS: Blood Urea Nitrogen 16 mg/dl (8-23); Calcium 9.1 mg/dl (8.6-10.4); Carbon Dioxide 19 mmol/L (22-30); Glomerular Filtration Rate 89; Glucose 129 mg/dL (70-105)
[2019-04-24 07:36] LABS: Chloride 109 mmol/L (96-108)
--- NOTE | 2019-04-24 07:56 | Operative Note ---
DATE OF OPERATION: 04/22/2019 PREOPERATIVE DIAGNOSES: 1. Left hand deep dorsal abscess. 2. Left hand suppurative extensor tenosynovitis. POSTOPERATIVE DIAGNOSES: 1. Left hand deep dorsal abscess. 2. Left hand suppurative extensor tenosynovitis. PROCEDURE: 1. Debridement and irrigation of the left hand deep dorsal abscess. 2. Debridement and irrigation of the left hand extensor tendon sheath. SURGEON: Reble Ewing MD CALL OR CONTACT CENTRE MANAGER: Josep Estrada PA-C. This provider's expertise and technical skill were required throughout the case. The PA assisted with preoperative coordination, intraoperative retraction, wound closure, dressing and splint application, as well as postoperative documentation and care coordination. ANESTHESIA: General with laryngeal mask. ESTIMATED BLOOD LOSS: 6 mL DRAINS: Included 1/4-inch Heydi drain placed deep to the extensor tendons. COMPLICATIONS: None. FINAL SPONGE COUNT: Correct. SPECIMENS: Aerobic and anaerobic cultures of the left dorsal hand abscess. INDICATION: The patient is a 68-year-old right hand dominant male who about 6 days ago sustained an injury to the dorsum of his left hand with an open wound. The patient was seen in the emergency department 2 days later, started on IV antibiotics with worsening redness, swelling, had a change of antibiotics on the and then presented on the with worsening pain, swelling, redness and some drainage from the dorsum of his hand. His physical examination demonstrated two ulcerations and eschars on the dorsal aspect of the hand with some serous and purulent drainage on the dorsum of the hand. He has significant tenderness to palpation with erythema, induration extending to the distal interphalangeal joints of the middle and ring fingers and to the wrist area with lymphangitis extending to the elbow with epicondylar adenopathy, and with limited range of motion, tenderness to palpation. The patient and family verbalized that they understood the proposed procedure with the associated risks and benefits and consented. DESCRIPTION OF PROCEDURE: The patient was taken to the operating room suite and placed supine on the operating table. General anesthesia was attained with laryngeal mask. After adequate anesthesia was verified, a tourniquet was placed on the proximal aspect of his left arm and the left upper extremity was then sterilely prepped and draped in the usual fashion. Exploration of the hand demonstrated the ulcerations and the eschars on the more ulnar aspect to be partial thickness. The more radial to midline ulceration and eschar demonstrated a deep tract extending to the dorsum of the hand with purulence with exploration. At this time, there was also significant bullae formation on the dorsum of the hand to include the ring and middle fingers and over to the thumb. Next, the bullae were removed and there was good dermal tissues deep. The eschar was debrided over the more ulnar aspect which again revealed more of a partial thickness ulceration. The more central eschar ulceration was debrided and again seen to be down to the extensor tendon sheath with associated purulence. At this time, a Z incision was then drawn over the dorsum of the hand ellipsing out the more central ulceration eschar. After this demonstrated to be in good position, the left upper extremity was exsanguinated and the tourniquet was inflated to 280 mmHg. The previously marked incision was then made beginning at the mid wrist extending ulnarly and then radially ellipsing out the dorsal central eschar ulceration to the level of the third dorsal web space. Sharp dissection was taken over the skin and subcutaneous tissues. Subcutaneous tissues were bluntly divided. The entire ulceration and eschar was excised. Next, the two flaps were developed radially and ulnarly exposing the entire extensor tendon sheath. At this time, tissue and cultures were sent for pathologic evaluation and aerobic and anaerobic cultures. Next, with the use of blunt and sharp dissection, all necrotic material was removed, the infected synovitis removed over the tendons. All necrotic tissue was removed in the subcutaneous tissues. A complete debridement was completed through the extensor tendon sheath as well. Copious irrigation with a liter of sterile saline solution, repeat debridement, another irrigation with a second liter of sterile saline solution and a second debridement, and a third liter of sterile saline solution and a final debridement removing all necrotic and/or foreign material. At this time, the skin edges and head were trimmed back and the abscess was seen to track somewhat to the dorsum of the thumb metacarpal and to the dorsal tendon sheath, but not into the forearm and not into the fingers. After a final debridement and irrigation, there was seen to be good soft tissues for closure. Next, the skin was then closed with 3-0 nylon in interrupted sutures. Prior to closure, a 1/4-inch Heydi drain was placed proximal to the incision site, deep into the extensor tendons. Next, the tourniquet was released and the hand and fingers were seen to pink up very nicely with good drainage through the Heydi drain. Sterile Xeroform was placed over the exposed dermal tissues and the incision site leaving the drain free. A bulky hand dressing and a volar splint was applied with the wrist in slight extension and the metacarpals in a flexed posture. The patient was awakened, transferred to the [facility] and to recovery room in stable condition. The patient tolerated the procedure well. Estimated blood loss was 6 mL. Drains included quarter-inch Dillingham drain placed deep to the extensor tendons. Complications were none. Final sponge count was correct. Specimens included aerobic and anaerobic cultures of the left hand deep dorsal abscess. SRB:kory Job ID: [id number] Doc ID: [id number] Rebel Ewing MD
[2019-04-24] MEDS: INSULIN LISPRO 1 UNIT/0.01 ML UNIT SQ SCH ×4 (07:57→21:06)
[2019-04-24] MEDS: LISINOPRIL 5 MG TABLET PO SCH (08:32)
[2019-04-24] MEDS: amLODIPine 10 MG TABLET PO SCH (08:32)
[2019-04-24] MEDS: TOPIRAMATE 100 MG PO SCH (08:33)
[2019-04-24] MEDS: ENOXAPARIN 40 MG/0.4 ML SYRINGE SQ SCH (08:33)
[2019-04-24] MEDS: INSULIN GLARGINE, HUMAN 1 UNIT/0.01 ML SQ SCH (08:33)
[2019-04-24] MEDS: DOCUSATE SODIUM 100 MG CAPSULE PO SCH ×2 (08:33→21:05)
--- NOTE | 2019-04-24 11:32 | Internal Med Progress Note ---
Medical - PN: Subj Patient information: Note initiated : 04/24/19 at 11:29 am Service Date, if different from initiated Date: [] Patient: Rayshawn Cho a 68 y/o M admitted on 04/22/19 for left hand cellulitis, worse. Chief Complaint: Follow-up cellulitis/tenosynovitis Interval history: 04/22 Mr. Cho is a 68 year old M with a history of type 2 diabetes, hypertension, hypercholesterolemia who re-presents to the emergency department with worsening left hand symptoms. Patient injured his hand on , it became stuck between 2 metal cabinets. Pulled his hand out, had an open wound on the dorsum of the hand. That became swollen and painful with erythema. He was seen in the ED on Sunday, started on vancomycin as an outpatient for hand cellulitis. He returned on Sunday for a follow-up, at which point it appeared to be about the same and cephalexin and Bactrim were added to the regimen. He continued to come in to receive outpatient IV antibiotics. Yesterday, Sunday, he had worsening erythema, development of a blister at the base of the thumb as well as worsening edema down into the proximal fingers from the dorsum of the hand. He did have some proximal progression of erythema earlier, which has receded slightly. He is tried to keep his hand elevated when at rest. He is unable to flex his finger secondary to edema and pain. He had a fever up to 100.6 degrees yesterday. He had chills a few nights ago. He did have some nausea and vomiting after IV antibiotics yesterday. Has had decreased appetite. Said no diarrhea, no abdominal pain. Patient was told many years ago he may have had a remote myocardial infarction (he was not hospitalized, is unclear why that was thought), but he currently is active and has no chest tightness/squeezing/pressure symptoms and is not limited by dyspnea. No history of lung disease. He occasionally has trace lower extremity edema, particularly associated with an abrasion and cellulitis of his right distal leg, which has now resolved. He has no history of congestive heart failure, no orthopnea. No history of COPD or other pulmonary disease. His diabetes is controlled with metformin and Lantus and glucose generally runs in the 120s. 04/23/2019 Doing well this afternoon, pain is controlled. No fevers. 1/2 Continues to do well. Hand feels improved. Dressing still in place, plan to review tomorrow. Cultures without growth to date. Infectious disease consulted to help guide antibiotic therapy, discussed with Dr. Tapia. - Constitutional Vitals: Vital Signs Temp Pulse Resp BP Pulse Ox 97.3 F 67 14 139/75 97 04/24/19 08:00 04/24/19 08:00 04/24/19 08:00 04/24/19 08:00 04/24/19 08:00 Period Temp Pulse Resp BP Sys/Tomas Pulse Ox Last 24 Hr 97.3 F-98.5 F 66-73 12-16 108-140/53-81 94-97 Intake and Output 04/23/19 04/24/19 04/24/19 21:59 05:59 13:59 Intake Total 1840 1700 496 Output Total 1750 Balance 1840 -50 496 Weight 267 lb 3.2 oz 267 lb 3.2 oz Patient Weight 04/25/19 05:59 Weight 267 lb 3.2 oz Intake & Output: Intake & Output 04/23/19 04/24/19 04/24/19 21:59 05:59 13:59 Intake Total 1840 1700 496 Output Total 1750 Balance 1840 -50 496 Weight 267 lb 3.2 oz 267 lb 3.2 oz Intake: IV 500 1500 496 Sodium Chloride 0.9% 1,000 ml @ 1000 496 75 mls/hr IV .[id number] [facility] Rx#: [id number] Vancomycin 1,500 mg In Sodium 500 500 Chloride 0.9% 500 ml @ 333.3 mls/hr IV Q12H [facility] Rx#: [id number] Oral 1340 200 Output: Void Amount 1750 Other: Meal Dinner Percent of Meal Consumed 25% Urine Appearance Clear Urine Color Bright Yellow Urine Odor Normal Exam: General: Sitting up in chair eating breakfast in no acute distress Chest: Clear to auscultation bilaterally with good aeration Cardiovascular: Regular rate and rhythm, no murmur Abdomen: Soft Musculoskeletal: Left upper extremity with hand and wrist and surgical dressings. Fingers warm and perfused Neuro: Alert, oriented x3, nonfocal Medical - PN: Obj Da - Labs CBC & Chem 7: 04/24/19 05:50 04/24/19 05:50 Labs: Abnormal Lab Results 04/24/19 04/24/19 04/23/19 05:50 05:50 04:55 WBC 11.4 H RBC 3.64 L Hgb 11.0 L Hct 33.6 L Gran % Lymph % (Auto) Gran # Lymph # (Auto) [place] # (Auto) Chloride 109 H Carbon Dioxide 19 L 16 L Glucose 129 H 252 H Urine Protein Urine Ketones Urine Urobilinogen Urine RBC 04/23/19 04/22/19 04/22/19 04:55 15:46 11:27 WBC 13.4 H RBC 4.09 L Hgb 12.4 L Hct 38.1 L Gran % 89.9 H Lymph % (Auto) 6.9 L Gran # 12.03 H Lymph # (Auto) 0.93 L [place] # (Auto) Chloride Carbon Dioxide 20 L Glucose 112 H Urine Protein 30 A Urine Ketones 5/tr A Urine Urobilinogen 4.0 A Urine RBC 2 H 04/22/19 11:27 WBC 14.3 H RBC 4.24 L Hgb 12.7 L Hct 39.0 L Gran % Lymph % (Auto) 15.2 L Gran # 10.57 H Lymph # (Auto) [place] # (Auto) 1.17 H Chloride Carbon Dioxide Glucose Urine Protein Urine Ketones Urine Urobilinogen Urine RBC Microbiology 04/22/19 19:10 Gram Stain - Final Abscess - Left Gram Stain - Final Anaerobic Culture - Preliminary 04/22/19 12:57 Gram Stain - Final Hand - Left Wound Culture - Final 04/22/19 19:10 Gram Stain - Final Hand - Left Abscess Culture - Preliminary Meds: Medications Acetaminophen (Tylenol) 650 mg PO Q6HP PRN; Protocol PRN Reason: Per Pain Protocol/Fever > 101 Hydrocodone Bitart/Acetaminophen ([place] 7.5/325mg) 0 tab PO Q4HP PRN; Protocol PRN Reason: Per Pain Protocol Last Admin: 04/24/19 10:41 Dose: 2 tab Documented by: Amlodipine Besylate (Norvasc) 10 mg PO DAILY [facility] Last Admin: 04/24/19 08:32 Dose: 10 mg Documented by: Atorvastatin Calcium (Lipitor) 20 mg PO HS [facility] Last Admin: 04/23/19 21:13 Dose: 20 mg Documented by: Cefazolin Sodium (Ancef) 2 gm IV Q8H [facility] Last Admin: 04/24/19 05:55 Dose: 2 gm Documented by: Dextrose (Dextrose 50%) 0 ml IV UD PRN PRN Reason: Hypoglycemia Diagnostic Test (Pha) (Accu-Chek) 1 each FS [facility] Last Admin: 04/24/19 11:27 Dose: 1 each Documented by: Docusate Sodium (Colace) 100 mg PO BID [facility] Last Admin: 04/24/19 08:33 Dose: 100 mg Documented by: Enoxaparin Sodium (Lovenox) 40 mg SQ DAILY [facility] Last Admin: 04/24/19 08:33 Dose: 40 mg Documented by: Glucose (Insta-Glucose) 15 gm PO PRN PRN PRN Reason: Hypoglycemia Hydromorphone HCl (Dilaudid) 0 mg IV Q2HP PRN; Protocol PRN Reason: Per Pain Protocol Last Admin: 04/23/19 17:00 Dose: 2 mg Documented by: Insulin Glargine (Lantus) 15 unit SQ DAILY [facility] Last Admin: 04/24/19 08:33 Dose: 15 units Documented by: Insulin Human Lispro (Humalog) 0 unit SQ [facility]; Protocol Last Admin: 04/24/19 11:27 Dose: Not Given Documented by: Lisinopril (Zestril) 5 mg PO DAILY [facility] Last Admin: 04/24/19 08:32 Dose: 5 mg Documented by: Morphine Sulfate (Morphine) 4 mg IV Q4HP PRN; Protocol PRN Reason: Per Pain Protocol Last Admin: 04/22/19 13:29 Dose: 4 mg Documented by: Ondansetron HCl (Zofran) 4 mg IV Q4HP PRN; Protocol PRN Reason: Nausea And Vomiting Topiramate [Trokendi (Xr] 100 Mg Tab) 1 dose PO DAILY [facility] Last Admin: 04/24/19 08:33 Dose: Not Given Documented by: Senna (Senokot) 2 tab PO HS [facility] Last Admin: 04/23/19 21:13 Dose: 2 tab Documented by: Sodium Chloride (Saline Flush) 10 ml IV Q8 [facility] Last Admin: 04/24/19 05:56 Dose: Not Given Documented by: Throat Lozenges (Cepacol) 1 lozenge PO PRN PRN PRN Reason: Sore Throat Vancomycin HCl (Vancomycin Per Pharmacy) 1 order IV [facility] [place]; Protocol Medical - PN: A/P - Time Spent With Patient Total time spent is greater than 50% in coordination of care (as documented) at patient's floor/unit and/or counseling patient: 25 - 35 minutes - Narrative A/P Narrative: 68-year-old male with progressive erythema, swelling, now blistering of the left hand following injury when it became trapped between a metal cabinet. Cellulitis of the left hand with deep infection, tenosynovitis found intraoperatively. Failed outpatient IV and oral antibiotics. Status post I&D by Dr. Ewing. Patient without any pet exposures, suspect this is either related to staph or strep infection from skin break. Postop day #2. Plan Continue vancomycin and cefazolin ID consult, discussed with Dr. Tapia Wound management per orthopedics Gram stain with GPC's, follow-up cultures Possible discharge late tomorrow after drains discontinued and wound examined by Ortho Type 2 diabetes. Controlled with metformin and Lantus. Hold metformin with acute illness Continue Lantus Sliding scale insulin, Accu-Cheks, diabetic diet postop Hypertension. On lisinopril and amlodipine. Continue home regimen. Hypercholesterolemia. On statin. Continue atorvastatin CODE STATUS: Full code Prophylaxis: Lovenox Medical - PN: Qual - Stroke Symptom Onset Unknown: No - VTE Deep Vein Thrombosis/Pulmonary Embolism Present on Admission: No
--- NOTE | 2019-04-24 12:45 | Internal Med Progress Note ---
Medical - PN: Subj Patient information: Note initiated : 04/24/19 at 12:41 pm Service Date, if different from initiated Date: [] Patient: Rayshawn Cho a 68 y/o M admitted on 04/22/19 for left hand cellulitis, worse. Chief Complaint: [] Interval history: 04/22 Mr. Cho is a 68 year old M with a history of type 2 diabetes, hypertension, hypercholesterolemia who re-presents to the emergency department with worsening left hand symptoms. Patient injured his hand on , it became stuck between 2 metal cabinets. Pulled his hand out, had an open wound on the dorsum of the hand. That became swollen and painful with erythema. He was seen in the ED on Sunday, started on vancomycin as an outpatient for hand cellulitis. He returned on Sunday for a follow-up, at which point it appeared to be about the same and cephalexin and Bactrim were added to the regimen. He continued to come in to receive outpatient IV antibiotics. Yesterday, Sunday, he had worsening erythema, development of a blister at the base of the thumb as well as worsening edema down into the proximal fingers from the dorsum of the hand. He did have some proximal progression of erythema earlier, which has receded slightly. He is tried to keep his hand elevated when at rest. He is unable to flex his finger secondary to edema and pain. He had a fever up to 100.6 degrees yesterday. He had chills a few nights ago. He did have some nausea and vomiting after IV antibiotics yesterday. Has had decreased appetite. Said no diarrhea, no abdominal pain. Patient was told many years ago he may have had a remote myocardial infarction (he was not hospitalized, is unclear why that was thought), but he currently is active and has no chest tightness/squeezing/pressure symptoms and is not limited by dyspnea. No history of lung disease. He occasionally has trace lower extremity edema, particularly associated with an abrasion and cellulitis of his right distal leg, which has now resolved. He has no history of congestive heart failure, no orthopnea. No history of COPD or other pulmonary disease. His diabetes is controlled with metformin and Lantus and glucose generally runs in the 120s. 04/23/2019 Doing well this afternoon, pain is controlled. No fevers. 04/24 Continues to do well. Hand feels improved. Dressing still in place, plan to review tomorrow. Cultures without growth to date. Infectious disease consulted to help guide antibiotic therapy, discussed with Dr. Tapia. - Constitutional Vitals: Vital Signs Temp Pulse Resp BP Pulse Ox 97.3 F 67 14 139/75 97 04/24/19 08:00 04/24/19 08:00 04/24/19 08:00 04/24/19 08:00 04/24/19 08:00 Period Temp Pulse Resp BP Sys/Tomas Pulse Ox Last 24 Hr 97.3 F-98.5 F 66-73 12-16 108-140/53-81 95-97 Intake and Output 04/23/19 04/24/19 04/24/19 21:59 05:59 13:59 Intake Total 1840 1700 496 Output Total 1750 Balance 1840 -50 496 Weight 121.2 kg 121.2 kg Patient Weight 04/25/19 05:59 Weight 121.2 kg Intake & Output: Intake & Output 04/23/19 04/24/19 04/24/19 21:59 05:59 13:59 Intake Total 1840 1700 496 Output Total 1750 Balance 1840 -50 496 Weight 121.2 kg 121.2 kg Intake: IV 500 1500 496 Sodium Chloride 0.9% 1,000 ml @ 1000 496 75 mls/hr IV .[id number] [facility] Rx#: [id number] Vancomycin 1,500 mg In Sodium 500 500 Chloride 0.9% 500 ml @ 333.3 mls/hr IV Q12H [facility] Rx#: [id number] Oral 1340 200 Output: Void Amount 1750 Other: Meal Dinner Percent of Meal Consumed 25% Urine Appearance Clear Urine Color Bright Yellow Urine Odor Normal Exam: General: Alert, Awake, No acute Distress Eyes/N/T: EOMI, Head/Neck: neck supple, CV: RRR, No murmurs, Pulm: Clear b/l, no wheezing/rhonchi/rales Abd: soft, nontender, +BS x4 Ext: no clubbing/cyanosis/edema LE's, LUE in surgical dressings Neuro: Alert, no focal deficits, moves all extremities, Skin: warm/dry Medical - PN: Obj Da - Labs CBC & Chem 7: 04/24/19 05:50 04/24/19 05:50 Labs: Abnormal Lab Results 04/24/19 04/24/19 04/23/19 05:50 05:50 04:55 WBC 11.4 H RBC 3.64 L Hgb 11.0 L Hct 33.6 L Gran % Lymph % (Auto) Gran # Lymph # (Auto) [place] # (Auto) Chloride 109 H Carbon Dioxide 19 L 16 L Glucose 129 H 252 H Urine Protein Urine Ketones Urine Urobilinogen Urine RBC 04/23/19 04/22/19 04/22/19 04:55 15:46 11:27 WBC 13.4 H RBC 4.09 L Hgb 12.4 L Hct 38.1 L Gran % 89.9 H Lymph % (Auto) 6.9 L Gran # 12.03 H Lymph # (Auto) 0.93 L [place] # (Auto) Chloride Carbon Dioxide 20 L Glucose 112 H Urine Protein 30 A Urine Ketones 5/tr A Urine Urobilinogen 4.0 A Urine RBC 2 H 04/22/19 11:27 WBC 14.3 H RBC 4.24 L Hgb 12.7 L Hct 39.0 L Gran % Lymph % (Auto) 15.2 L Gran # 10.57 H Lymph # (Auto) [place] # (Auto) 1.17 H Chloride Carbon Dioxide Glucose Urine Protein Urine Ketones Urine Urobilinogen Urine RBC Meds: Medications Acetaminophen (Tylenol) 650 mg PO Q6HP PRN; Protocol PRN Reason: Per Pain Protocol/Fever > 101 Hydrocodone Bitart/Acetaminophen ([place] 7.5/325mg) 0 tab PO Q4HP PRN; Protocol PRN Reason: Per Pain Protocol Last Admin: 04/24/19 10:41 Dose: 2 tab Documented by: Amlodipine Besylate (Norvasc) 10 mg PO DAILY [facility] Last Admin: 04/24/19 08:32 Dose: 10 mg Documented by: Atorvastatin Calcium (Lipitor) 20 mg PO HS [facility] Last Admin: 04/23/19 21:13 Dose: 20 mg Documented by: Cefazolin Sodium (Ancef) 2 gm IV Q8H [facility] Last Admin: 04/24/19 05:55 Dose: 2 gm Documented by: Dextrose (Dextrose 50%) 0 ml IV UD PRN PRN Reason: Hypoglycemia Diagnostic Test (Pha) (Accu-Chek) 1 each FS [facility] Last Admin: 04/24/19 11:27 Dose: 1 each Documented by: Docusate Sodium (Colace) 100 mg PO BID [facility] Last Admin: 04/24/19 08:33 Dose: 100 mg Documented by: Enoxaparin Sodium (Lovenox) 40 mg SQ DAILY [facility] Last Admin: 04/24/19 08:33 Dose: 40 mg Documented by: Glucose (Insta-Glucose) 15 gm PO PRN PRN PRN Reason: Hypoglycemia Hydromorphone HCl (Dilaudid) 0 mg IV Q2HP PRN; Protocol PRN Reason: Per Pain Protocol Last Admin: 04/23/19 17:00 Dose: 2 mg Documented by: Insulin Glargine (Lantus) 15 unit SQ DAILY [facility] Last Admin: 04/24/19 08:33 Dose: 15 units Documented by: Insulin Human Lispro (Humalog) 0 unit SQ [facility]; Protocol Last Admin: 04/24/19 11:27 Dose: Not Given Documented by: Lisinopril (Zestril) 5 mg PO DAILY [facility] Last Admin: 04/24/19 08:32 Dose: 5 mg Documented by: Morphine Sulfate (Morphine) 4 mg IV Q4HP PRN; Protocol PRN Reason: Per Pain Protocol Last Admin: 04/22/19 13:29 Dose: 4 mg Documented by: Ondansetron HCl (Zofran) 4 mg IV Q4HP PRN; Protocol PRN Reason: Nausea And Vomiting Topiramate [Trokendi (Xr] 100 Mg Tab) 1 dose PO DAILY [facility] Last Admin: 04/24/19 08:33 Dose: Not Given Documented by: Nadine (Senokot) 2 tab PO HS [facility] Last Admin: 04/23/19 21:13 Dose: 2 tab Documented by: Sodium Chloride (Saline Flush) 10 ml IV Q8 [facility] Last Admin: 04/24/19 05:56 Dose: Not Given Documented by: Throat Lozenges (Cepacol) 1 lozenge PO PRN PRN PRN Reason: Sore Throat Vancomycin HCl (Vancomycin Per Pharmacy) 1 order IV UD [facility]; Protocol Medical - PN: A/P - Time Spent With Patient Total time spent is greater than 50% in coordination of care (as documented) at patient's floor/unit and/or counseling patient: - Narrative A/P Narrative: A: *Cellulitis of the left hand with deep infection, tenosynovitis found intraoperatively:Status post I&D by Dr. Ewing (04/22) -Failed outpatient IV and oral antibiotics. Patient without any pet exposures, suspect this is either related to staph or strep infection from skin break. *Type 2 diabetes. Controlled with metformin and Lantus. *DM: *Hypertension. On lisinopril and amlodipine. Continue home regimen. *Hypercholesterolemia. On statin. Continue atorvastatin p: -Continue vancomycin and cefazolin ID consult, discussed with Dr. Tapia Wound management per orthopedics Gram stain with GPC's, follow-up cultures Possible discharge late tomorrow after drains discontinued and wound examined by Ortho -Hold metformin with acute illness,Continue Lantus, Sliding scale insulin, Accu-Cheks, diabetic diet postop - -Prophylaxis: Lovenox CODE STATUS: Full code Medical - PN: Qual - Stroke Symptom Onset Unknown: No - VTE Deep Vein Thrombosis/Pulmonary Embolism Present on Admission: No
--- NOTE | 2019-04-24 13:30 | Discharge Summary ---
Medical - DS: Prov Patient information: Note initiated : 04/24/19 at 1:28 pm Service Date, if different from initiated Date: [] Patient: Rayshawn Cho 68 y/o M admitted on 04/22/19 for left hand cellulitis, worse. Chief Complaint: [] Date of admission: 04/22/19 12:20 Discharge date: 04/25/19 Primary care physician: Patrick Hernandez Consults: 04/22/19 Consult to Physician [CONS] Stat Comment: Consulting Provider: Rebel Ewing Reason For Exam: Physician to Consult Consult to Physician [CONS] Stat Comment: Consulting Provider: Paulina Schilling Reason For Exam: Physician to Consult 04/24/19 11:28 Consult to Infectious Disease [CONS] Routine Comment: Consulting Provider: Pritesh Tapia Reason For Exam: Physician to Consult Medical - DS: Meds - Discharge Medications Prescriptions: Dextrose [Insta-Glucose] 15 gm PO PRN PRN #1 oral.susp PRN Reason: Hypoglycemia Hydrocodone/APAP 7.5/325Mg [[place] 7.5-325Mg] 1 - 2 tab PO Q4-6HP PRN #65 tab PRN Reason: Pain Prescription Printed Hydrocodone/APAP 7.5/325Mg [[place] 7.5-325Mg] 7.5 mg PO Q4-6HP PRN #65 tab PRN Reason: Per Pain Protocol Prescription Printed cefTRIAXone [Rocephin] 2 gm IV Q24H #1 vial Transmission Status: Pending to [facility] Active and Home Medications: Home Medications Aspirin [Lo-Dose Aspirin EC] 81 mg PO DAILY 04/19/19 [History Confirmed 04/22/19 Last Taken 04/22/19] Atorvastatin [Lipitor] 20 mg PO HS 04/19/19 [History Confirmed 04/22/19 Last Taken 04/21/19 21:00] Furosemide [Lasix] 20 mg PO DAILY 04/19/19 [History Confirmed 04/22/19 Last Taken 04/20/19] Insulin Glargine, Human [Lantus] 15 unit SQ HS 04/19/19 [History Confirmed 04/22/19 Last Taken 04/22/19 08:00] Lisinopril [Zestril] 5 mg PO DAILY 04/19/19 [History Confirmed 04/22/19 Last Taken 04/22/19 08:00] Magnesium 250 mg PO AC 04/19/19 [History Confirmed 04/22/19 Last Taken 04/22/19 08:00] Topiramate [Trokendi Xr] 100 mg PO DAILY 04/19/19 [History Confirmed 04/22/19 Last Taken 04/22/19 08:00] amLODIPine [Norvasc] 10 mg PO DAILY 04/19/19 [History Confirmed 04/22/19 Last Taken 04/21/19 21:00] metFORMIN HCL [Metformin HCl] 1,000 mg PO DAILY 04/19/19 [History Confirmed 04/22/19 Last Taken 04/22/19 08:00] traMADol [Ultram] 50 mg PO Q6-8HP PRN #10 tab 04/19/19 [Rx Confirmed 04/22/19 Last Taken 04/22/19 08:00] Cephalexin [Keflex] 500 mg PO QID #30 cap 04/20/19 [Rx Confirmed 04/22/19 Last Taken Unknown] Sulfamethoxazole/Trimethoprim [Bactrim Ds] 1 tab PO BID #14 tab 04/20/19 [Rx Confirmed 04/22/19 Last Taken Unknown] Hydrocodone/APAP 7.5/325Mg [[place] 7.5-325Mg] 1 - 2 tab PO Q4-6HP PRN #65 tab 04/22/19 [Rx Last Taken Unknown] Hydrocodone/APAP 7.5/325Mg [[place] 7.5-325Mg] 7.5 mg PO Q4-6HP PRN #65 tab 04/24/19 [Rx Last Taken Unknown] Home Medications Aspirin [Lo-Dose Aspirin EC] 81 mg PO DAILY 04/19/19 [History Confirmed 04/22/19 Last Taken 04/22/19] Atorvastatin [Lipitor] 20 mg PO HS 04/19/19 [History Confirmed 04/22/19 Last Taken 04/21/19 21:00] Furosemide [Lasix] 20 mg PO DAILY 04/19/19 [History Confirmed 04/22/19 Last Taken 04/20/19] Insulin Glargine, Human [Lantus] 15 unit SQ HS 04/19/19 [History Confirmed Last Taken 04/22/19 08:00] Lisinopril [Zestril] 5 mg PO DAILY 04/19/19 [History Confirmed 04/22/19 Last Taken 04/22/19 08:00] Magnesium 250 mg PO AC 04/19/19 [History Confirmed 04/22/19 Last Taken 04/22/19 08:00] Topiramate [Trokendi Xr] 100 mg PO DAILY 04/19/19 [History Confirmed 04/22/19 Last Taken 04/22/19 08:00] amLODIPine [Norvasc] 10 mg PO DAILY 04/19/19 [History Confirmed 04/22/19 Last Taken 04/21/19 21:00] metFORMIN HCL [Metformin HCl] 1,000 mg PO DAILY 04/19/19 [History Confirmed 04/22/19 Last Taken 04/22/19 08:00] traMADol [Ultram] 50 mg PO Q6-8HP PRN #10 tab 04/19/19 [Rx Confirmed 04/22/19 Last Taken 04/22/19 08:00] Sulfamethoxazole/Trimethoprim [Bactrim Ds] 1 tab PO BID #14 tab 04/20/19 [Rx Confirmed 04/22/19 Last Taken Unknown] Hydrocodone/APAP 7.5/325Mg [[place] 7.5-325Mg] 1 - 2 tab PO Q4-6HP PRN #65 tab 04/22/19 [Rx Last Taken Unknown] Dextrose [Insta-Glucose] 15 gm PO PRN PRN #1 oral.susp 04/24/19 [Rx Last Taken Unknown] Hydrocodone/APAP 7.5/325Mg [[place] 7.5-325Mg] 7.5 mg PO Q4-6HP PRN #65 tab 04/24/19 [Rx Last Taken Unknown] cefTRIAXone [Rocephin] 2 gm IV Q24H #1 vial 04/25/19 [Rx Last Taken Unknown] Medical - DS: Hosp Hospital Course: Mr. Cho is a 68 year old M with a history of type 2 diabetes, hypertension, hypercholesterolemia who re-presents to the emergency department with worsening left hand symptoms. Patient injured his hand on , it became stuck between 2 metal cabinets. Pulled his hand out, had an open wound on the dorsum of the hand. That became swollen and painful with erythema. He was seen in the ED on Sunday, started on vancomycin as an outpatient for hand cellulitis. He returned on Sunday for a follow-up, at which point it appeared to be about the same and cephalexin and Bactrim were added to the regimen. He continued to come in to receive outpatient IV antibiotics. Yesterday, Sunday, he had worsening erythema, development of a blister at the base of the thumb as well as worsening edema down into the proximal fingers from the dorsum of the hand. He did have some proximal progression of erythema earlier, which has receded slightly. He is tried to keep his hand elevated when at rest. He is unable to flex his finger secondary to edema and pain. He had a fever up to 100.6 degrees yesterday. He had chills a few nights ago. He did have some nausea and vomiting after IV antibiotics yesterday. Has had decreased appetite. Said no diarrhea, no abdominal pain. Patient was told many years ago he may have had a remote myocardial infarction (he was not ho spitalized, is unclear why that was thought), but he currently is active and has no chest tightness/squeezing/pressure symptoms and is not limited by dyspnea. No history of lung disease. He occasionally has trace lower extremity edema, particularly associated with an abrasion and cellulitis of his right distal leg, which has now resolved. He has no history of congestive heart failure, no orthopnea. No history of COPD or other pulmonary disease. His diabetes is controlled with metformin and Lantus and glucose generally runs in the 120s. 04/23/2019 Doing well this afternoon, pain is controlled. No fevers. 04/24 Continues to do well. Hand feels improved. Dressing still in place, plan to review tomorrow. Cultures without growth to date. Infectious disease consulted to help guide antibiotic therapy, discussed with Dr. Tapia. 04/25 No overnight events. No new complaints. Stable for discharge *Cellulitis of the left hand with deep infection, tenosynovitis found intraoperatively:Status post I&D by Dr. Ewing (04/22) -Failed outpatient IV and oral antibiotics. Patient without any pet exposures, suspect this is either related to staph or strep infection from skin break. *Type 2 diabetes. Controlled with metformin and Lantus. *Hypertension. On lisinopril and amlodipine. Continue home regimen. *Hypercholesterolemia. On statin. Continue atorvastatin Discharge diagnosis: Left hand cellulitis with tenosynovitis Secondary discharge diagnosis: Hypertension hypercholesterolemia - Time Spent with Patient Total time spent providing and/or coordinating discharge services: Greater than 30 minutes Medical - DS: Exam - Constitutional Vitals: Vital Signs Temp Pulse Resp BP Pulse Ox 04/24/19 08:00 97.3 F 67 14 139/75 97 04/24/19 04:14 97.7 F 70 14 140/81 96 04/23/19 22:53 98.5 F 66 12 110/64 95 04/23/19 18:39 98.1 F 69 12 108/53 95 04/23/19 16:00 97.4 F 73 16 124/65 96 Intake and Output 04/23/19 04/24/19 04/24/19 21:59 05:59 13:59 Intake Total 1840 1700 496 Output Total 1750 Balance 1840 -50 496 Intake: IV 500 1500 496 Sodium Chloride 0.9% 1,000 ml @ 1000 496 75 mls/hr IV .[id number] BETH Rx#: [id number] Vancomycin 1,500 mg In Sodium 500 500 Chloride 0.9% 500 ml @ 333.3 mls/hr IV Q12H BETH Rx#: [id number] Oral 1340 200 Output: Void Amount 1750 Other: Meal Dinner Percent of Meal Consumed 25% Urine Appearance Clear Urine Color Bright Yellow Urine Odor Normal Weight 121.2 kg 121.2 kg Patient Weight 04/25/19 05:59 Weight 121.2 kg Medical - DS: Data Labs on day of discharge: Labs from last 24 hours 04/24/19 04/24/19 04/24/19 08:19 05:50 05:50 WBC 11.4 H RBC 3.64 L Hgb 11.0 L Hct 33.6 L MCV 92.3 MCH 30.2 MCHC 32.7 RDW 13.7 Plt Count 335 MPV 9.7 Gran % 64.7 Lymph % (Auto) 25.4 [place] % (Auto) 7.2 Eos % (Auto) 2.2 Baso % (Auto) 0.5 Gran # 7.34 Lymph # (Auto) 2.88 [place] # (Auto) 0.82 Eos # (Auto) 0.25 Baso # (Auto) 0.06 Sodium 140 Potassium 4.2 Chloride 109 H Carbon Dioxide 19 L Anion Gap 12.0 BUN 16 Creatinine 0.9 GFR Calculation 89 Glucose 129 H Calcium 9.1 Vancomycin Trough 20.0 Preliminary micro results at discharge 04/22/19 19:10 Anaerobic Culture - Preliminary Abscess - Left 04/22/19 19:10 Abscess Culture - Preliminary Hand - Left Medical - DS: A/P - Patient/Caregiver Discharge Instructions Activity: increase activity as tolerated Diet: Consistent Carbohydrate Additional Instructions: Weekly CBC/BMP per Dr. Tapia while on IV antibiotics Prescriptions: Dextrose [Insta-Glucose] 15 gm PO PRN PRN #1 oral.susp PRN Reason: Hypoglycemia Hydrocodone/APAP 7.5/325Mg [[place] 7.5-325Mg] 1 - 2 tab PO Q4-6HP PRN #65 tab PRN Reason: Pain Prescription Printed Hydrocodone/APAP 7.5/325Mg [[place] 7.5-325Mg] 7.5 mg PO Q4-6HP PRN #65 tab PRN Reason: Per Pain Protocol Prescription Printed - Follow up Plan Follow up with: Pritesh Tapia MD [Physician] - 05/07/19 8:00 am Rebel Ewing MD [Physician] - 04/29/19 (Follow up ANTONY 04/29/19) Davey Hernandez MD [Primary Care Provider] - Disposition: Home, Self-Care Prognosis: Fair Rehab Potential: Fair Overall status at discharge: patient is progressing back to baseline Medical - DS: Qual - VTE Deep Vein Thrombosis/Pulmonary Embolism Present on Admission: No
[2019-04-24] MEDS ORDERED: cefTRIAXone 2 GM in DEXTROSE 5% IN WATER 50 ML IV SCH (14:30)
--- NOTE | 2019-04-24 15:56 | Infectious Disease Consult ---
History of Present Illness Patient information: Note initiated : 04/24/19 at 3:49 pm Service Date, if different from initiated Date: [] Patient: Rayshawn Cho 68 y/o M admitted on 04/22/19 for left hand cellulitis, worse. Chief Complaint: [] Consult date: 04/24/19 Requesting Physician: Paulina Schilling Reason for Consult: left wrist abscess and flexor tenosynovitis Chief complaint: my left wrist was red and swollen History of present illness: 68-year-old man with past medical history of type 2 diabetes, hypertension, hyperlipidemia was admitted to [facility] on 04/22/19 with complaints of worsening left hand swelling and redness. Patient had injured his left hand while working in the garage on [address]. He had a small tear in the skin. He managed it by placing a Band-Aid but it was not until Sunday, when he noticed redness, swelling in the hand. Patient went to ER where he was pr escribed oral Keflex and oral Bactrim and had daily injections of IV vancomycin. Patient's left hand swelling and redness progressed with involvement of wrist and forearm, for which he came to ER on 04/22/19. According to notes he could not move his fingers due to pain. He denied any fever, chills, contact with pets prior to admission. In the ER his temperature was 97.1F, heart rate 88, blood pressure 148/84. WBC was 14 point 3K with 74% neutrophils, lactic acid of 1. Patient underwent "Debridement and irrigation of the left hand deep dorsal abscess. Debridement and irrigation of the left hand extensor tendon sheath" on 04/22/19, with Op Cx sent. He has been on IV Vanc and IV Cefazolin since admission. At time of visit, he mentioned feeling better, with less pain in lefthand. Denied any n/v, diarrhea, fever, chills. Review of Systems All systems PM: reviewed and no additional remarkable complaints except as stated Constitutional: as per HPI Past History Past family history: lives in [place] with his no sick contacts Past social history: Stopped smoking many years ago. He has a couple drinks on several evenings a week Medications and Allergies Home Medications Medication Instructions Recorded Confirmed Type Aspirin [Lo-Dose Aspirin EC] 81 mg PO DAILY 04/19/19 04/22/19 History Atorvastatin [Lipitor] 20 mg PO HS 04/19/19 04/22/19 History Furosemide [Lasix] 20 mg PO DAILY 04/19/19 04/22/19 History Insulin Glargine, Human [Lantus] 15 unit SQ HS 04/19/19 04/22/19 History Lisinopril [Zestril] 5 mg PO DAILY 04/19/19 04/22/19 History Magnesium 250 mg PO AC 04/19/19 04/22/19 History Topiramate [Trokendi Xr] 100 mg PO DAILY 04/19/19 04/22/19 History amLODIPine [Norvasc] 10 mg PO DAILY 04/19/19 04/22/19 History metFORMIN HCL [Metformin HCl] 1,000 mg PO DAILY 04/19/19 04/22/19 History traMADol [Ultram] 50 mg PO Q6-8HP PRN #10 tab 04/19/19 04/22/19 Rx Cephalexin [Keflex] 500 mg PO QID #30 cap 04/20/19 04/22/19 Rx Sulfamethoxazole/Trimethoprim 1 tab PO BID #14 tab 04/20/19 04/22/19 Rx [Bactrim Ds] Hydrocodone/APAP 7.5/325Mg [[place] 1 - 2 tab PO Q4-6HP PRN #65 tab 04/22/19 Rx 7.5-325Mg] Dextrose [Insta-Glucose] 15 gm PO PRN PRN #1 oral.susp 04/24/19 Rx Hydrocodone/APAP 7.5/325Mg [[place] 7.5 mg PO Q4-6HP PRN #65 tab 04/24/19 Rx 7.5-325Mg] Allergies Allergy/AdvReac Type Severity Reaction Status Date / Time diazepam [From Valium] AdvReac Mild Depressed/O Verified 04/24/19 10:13 rnmark Physical Examination Vital signs: Temp Pulse Resp BP Pulse Ox 36.4 C 70 14 127/70 98 04/24/19 12:00 04/24/19 12:00 04/24/19 12:00 04/24/19 12:00 04/24/19 12:00 General appearance: no acute distress Eyes pulmonary: nonicteric ENT: oropharynx moist Extremities: other (left wrist and hand wrapped in surgical dressing, with a darlyn drain. no discoloration of finger tips. Rest of the hand could not be examined given surgiacl dressing.) Results - Laboratory Findings CBC and BMP: 04/24/19 05:50 04/24/19 05:50 PT/INR, D-dimer PT 13.4 sec (11.9-14.5) 04/22/19 11:27 INR 1.0 (0.9-1.1) 04/22/19 11:27 Abnormal lab findings: Abnormal Labs 04/22/19 04/22/19 04/22/19 11:27 11:27 15:46 WBC 14.3 H RBC 4.24 L Hgb 12.7 L Hct 39.0 L Gran % Lymph % (Auto) 15.2 L Gran # 10.57 H Lymph # (Auto) [place] # (Auto) 1.17 H Chloride Carbon Dioxide 20 L Glucose 112 H Urine Protein 30 A Urine Ketones 5/tr A Urine Urobilinogen 4.0 A Urine RBC 2 H 04/23/19 04/23/19 04/24/19 04:55 04:55 05:50 WBC 13.4 H 11.4 H RBC 4.09 L 3.64 L Hgb 12.4 L 11.0 L Hct 38.1 L 33.6 L Gran % 89.9 H Lymph % (Auto) 6.9 L Gran # 12.03 H Lymph # (Auto) 0.93 L [place] # (Auto) Chloride Carbon Dioxide 16 L Glucose 252 H Urine Protein Urine Ketones Urine Urobilinogen Urine RBC 04/24/19 05:50 WBC RBC Hgb Hct Gran % Lymph % (Auto) Gran # Lymph # (Auto) [place] # (Auto) Chloride 109 H Carbon Dioxide 19 L Glucose 129 H Urine Protein Urine Ketones Urine Urobilinogen Urine RBC Microbiology: Microbiology 04/22/19 19:10 Hand - Left Gram Stain - Final 04/22/19 19:10 Hand - Left Abscess Culture - Final Strep pyogenes (grp a) 04/22/19 19:10 Abscess - Left Gram Stain - Final 04/22/19 19:10 Abscess - Left Gram Stain - Final 04/22/19 19:10 Abscess - Left Anaerobic Culture - Preliminary 04/22/19 12:57 Hand - Left Gram Stain - Final 04/22/19 12:57 Hand - Left Wound Culture - Final Assessment and Plan - Narrative A/P Narrative: A: 1. Left hand deep dorsal abscess and suppurative extensor tenosynovitis: - POD 2, Debridement and irrigation of the left hand deep dorsal abscess, Debridement and irrigation of the left hand extensor tendon sheath - operative Cx growing Strept pyogenes - s/p 3 days of IV Vanc and IV Cefazolin Recommendations: - Consider midline placement - Stop IV Vanc and IV Cefazolin - Start IV Ceftriaxone 2 gm q24 hrs. will plan for at least 2 weeks of IV abx with ID clinic f/u. ID clinic appt scheduled for 05/07/19 at 8 am Follow up labs: CBC, BMP weekly will follow Pritesh Tapia MD Infectious diseases
[2019-04-24] MEDS ORDERED: cefTRIAXone 2 GM VIAL IM SCH (16:00)
[2019-04-24] MEDS: cefTRIAXone 2 GM in DEXTROSE 5% IN WATER 50 ML IV SCH (16:18)
[2019-04-24] MEDS: VANCOMYCIN 1,500 MG in 0.9 % SODIUM CHLORIDE 500 ML IV SCH (18:23)
[2019-04-24] MEDS: ATORVASTATIN 20 MG TABLET PO SCH (21:05)
[2019-04-24] MEDS: SENNOSIDES 1 TABLET PO SCH (21:05)
[2019-04-25] MEDS: HYDROCODONE/APAP 7.5/325MG TABLET PO PRN ×2 (03:05→12:08)
[2019-04-25] MEDS: 0.9 % SODIUM CHLORIDE 10 ML SYRINGE IV SCH ×2 (05:03→14:30)
[2019-04-25] MEDS: INSULIN LISPRO 1 UNIT/0.01 ML UNIT SQ SCH ×2 (07:10→11:51)
[2019-04-25] MEDS: LISINOPRIL 5 MG TABLET PO SCH (08:13)
[2019-04-25] MEDS: amLODIPine 10 MG TABLET PO SCH (08:13)
[2019-04-25] MEDS: DOCUSATE SODIUM 100 MG CAPSULE PO SCH (08:13)
[2019-04-25] MEDS: ENOXAPARIN 40 MG/0.4 ML SYRINGE SQ SCH (08:13)
[2019-04-25] MEDS: INSULIN GLARGINE, HUMAN 1 UNIT/0.01 ML SQ SCH (08:20)
[2019-04-25] MEDS: TOPIRAMATE 100 MG PO SCH (08:21)
[2019-04-25] MEDS: cefTRIAXone 2 GM in DEXTROSE 5% IN WATER 50 ML IV SCH (09:37)
--- NOTE | 2019-04-25 15:00 | Infectious Disease Prog Note ---
Subjective Patient information: Note initiated : 04/25/19 at 2:42 pm Service Date, if different from initiated Date: [] Patient: Rayshawn Cho 68 y/o M admitted on 04/22/19 for left hand cellulitis, worse. Chief Complaint: [] Principal diagnosis: Left dorsal hand deep abscess, suppurative extensor tenosynovitis Interval history: pt doing fine. denies any left hand pain, n/v/diarrhea, fever. Got his right arm midline placed yesterday. Objective Objective Narrative: ao x 3, in nad chest cta no thrush left hand fingers moving without any pain. has some tenderness on palpation over wrist and distal forearm. No discoloration of skin. Majority of hand and wrist under dressing Rt arm midline - Vital Signs Vital signs: Vital Signs Temp Pulse Resp BP Pulse Ox 04/25/19 12:00 36.8 C 69 18 146/81 96 04/25/19 07:48 69 04/25/19 07:21 36.5 C 69 18 154/87 93 04/25/19 03:21 37.0 C 70 18 153/80 96 04/24/19 23:41 36.8 C 70 18 159/85 97 04/24/19 19:16 36.8 C 68 18 115/68 94 04/24/19 16:00 36.7 C 65 18 125/73 93 Intake and Output 04/25/19 04/25/19 04/25/19 05:59 13:59 21:59 Intake Total 300 480 Output Total 3550 1350 Balance -3250 -870 Intake: Oral 300 480 Output: Void Amount 3550 1350 Other: Meal Breakfast Percent of Meal Consumed 50% Feeding Ability Independent Urine Appearance Clear Clear Urine Color Pale Straw Bright Yellow Urine Odor Normal Normal Intake & Output: Intake & Output 04/25/19 04/25/19 04/25/19 05:59 13:59 21:59 Intake Total 300 480 Output Total 3550 1350 Balance -3250 -870 Intake: Oral 300 480 Output: Void Amount 3550 1350 Other: Meal Breakfast Percent of Meal Consumed 50% Feeding Ability Independent Urine Appearance Clear Clear Urine Color Pale Straw Bright Yellow Urine Odor Normal Normal - Lab 04/24/19 05:50 04/24/19 05:50 Most recent lab results Calcium 9.1 mg/dl (8.6-10.4) 04/24/19 05:50 Microbiology 04/22/19 19:10 Abscess - Left Gram Stain - Final 04/22/19 19:10 Abscess - Left Gram Stain - Final 04/22/19 19:10 Abscess - Left Anaerobic Culture - Preliminary 04/22/19 19:10 Hand - Left Gram Stain - Final 04/22/19 19:10 Hand - Left Abscess Culture - Final Strep pyogenes (grp a) 04/22/19 12:57 Hand - Left Gram Stain - Final 04/22/19 12:57 Hand - Left Wound Culture - Final Medications Active Medications: Acetaminophen (Tylenol) 650 mg PO Q6HP PRN; Protocol PRN Reason: Per Pain Protocol/Fever > 101 Hydrocodone Bitart/Acetaminophen ([place] 7.5/325mg) 0 tab PO Q4HP PRN; Protocol PRN Reason: Per Pain Protocol Last Admin: 04/25/19 12:08 Dose: 2 tab Documented by: Admin: 04/25/19 03:05 Dose: 2 tab Documented by: Admin: 04/24/19 21:06 Dose: 2 tab Documented by: Admin: 04/24/19 16:45 Dose: 2 tab Documented by: Admin: 04/24/19 10:41 Dose: 2 tab Documented by: Admin: 04/24/19 04:11 Dose: 2 tab Documented by: Admin: 04/23/19 21:27 Dose: 2 tab Documented by: Admin: 04/23/19 15:12 Dose: 2 tab Documented by: Admin: 04/23/19 11:05 Dose: 2 tab Documented by: Admin: 04/23/19 04:02 Dose: 2 tab Documented by: SHAWN Amlodipine Besylate (Norvasc) 10 mg PO DAILY [facility] Last Admin: 04/25/19 08:13 Dose: 10 mg Documented by: Admin: 04/24/19 08:32 Dose: 10 mg Documented by: Admin: 04/23/19 08:54 Dose: 10 mg Documented by: SOFI Atorvastatin Calcium (Lipitor) 20 mg PO HS [facility] Last Admin: 04/24/19 21:05 Dose: 20 mg Documented by: Admin: 04/23/19 21:13 Dose: 20 mg Documented by: Admin: 04/22/19 21:25 Dose: 20 mg Documented by: SHAWN Dextrose (Dextrose 50%) 0 ml IV UD PRN PRN Reason: Hypoglycemia Diagnostic Test (Pha) (Accu-Chek) 1 each FS ACHS [facility] Admin: 04/25/19 11:51 Dose: 1 each Documented by: Admin: 04/25/19 07:10 Dose: 1 each Documented by: Admin: 04/24/19 21:05 Dose: 1 each Documented by: Admin: 04/24/19 16:25 Dose: 1 each Documented by: Admin: 04/24/19 11:27 Dose: 1 each Documented by: Admin: 04/24/19 07:57 Dose: 1 each Documented by: Admin: 04/23/19 21:21 Dose: 1 each Documented by: Admin: 04/23/19 16:48 Dose: 1 each Documented by: Admin: 04/23/19 11:45 Dose: 1 each Documented by: Admin: 04/23/19 08:54 Dose: 1 each Documented by: Admin: 04/22/19 21:29 Dose: 1 each Documented by: Admin: 04/22/19 16:33 Dose: 1 each Documented by: STU Docusate Sodium (Colace) 100 mg PO BID [facility] Admin: 04/25/19 08:13 Dose: 100 mg Documented by: Admin: 04/24/19 21:05 Dose: 100 mg Documented by: Admin: 04/24/19 08:33 Dose: 100 mg Documented by: Admin: 04/23/19 21:13 Dose: 100 mg Documented by: Admin: 04/23/19 08:54 Dose: 100 mg Documented by: Admin: 04/22/19 21:25 Dose: 100 mg Documented by: SHAWN Enoxaparin Sodium (Lovenox) 40 mg SQ DAILY [facility] Admin: 04/25/19 08:13 Dose: 40 mg Documented by: Admin: 04/24/19 08:33 Dose: 40 mg Documented by: Admin: 04/23/19 08:52 Dose: 40 mg Documented by: SOFI Glucose (Insta-Glucose) 15 gm PO PRN PRN PRN Reason: Hypoglycemia Hydromorphone HCl (Dilaudid) 0 mg IV Q2HP PRN; Protocol PRN Reason: Per Pain Protocol Last Admin: 04/23/19 17:00 Dose: 2 mg Documented by: Admin: 04/23/19 13:26 Dose: 1 mg Documented by: STU Ceftriaxone Sodium 2 gm/ (Dextrose) 50 mls @ 100 mls/hr IV Q24H [facility] Last Admin: 04/25/19 09:37 Dose: 100 mls/hr Documented by: Infusion: 04/24/19 18:10 Dose: 0 mls/hr Documented by: Admin: 04/24/19 16:18 Dose: 100 mls/hr Documented by: MALOU Insulin Glargine (Lantus) 15 unit SQ DAILY [facility] Last Admin: 04/25/19 08:20 Dose: 15 units Documented by: Admin: 04/24/19 08:33 Dose: 15 units Documented by: Admin: 04/23/19 08:53 Dose: 15 units Documented by: SOFI Insulin Human Lispro (Humalog) 0 unit SQ ACHS [facility]; Protocol Last Admin: 04/25/19 11:51 Dose: Not Given Documented by: MALOU Non-Admin Reason: No Coverage Needed Admin: 04/25/19 07:10 Dose: Not Given Documented by: MALOU Non-Admin Reason: No Coverage Needed Admin: 04/24/19 21:06 Dose: Not Given Documented by: SOCRATES Non-Admin Reason: No Coverage Needed Admin: 04/24/19 16:25 Dose: Not Given Documented by: MALOU Non-Admin Reason: No Coverage Needed Admin: 04/24/19 11:27 Dose: Not Given Documented by: MALOU Non-Admin Reason: No Coverage Needed Admin: 04/24/19 07:57 Dose: 2 units Documented by: Admin: 04/23/19 21:26 Dose: 2 units Documented by: Admin: 04/23/19 16:52 Dose: 6 units Documented by: Admin: 04/23/19 12:28 Dose: 8 units Documented by: Admin: 04/23/19 08:53 Dose: 2 units Documented by: Admin: 04/22/19 21:28 Dose: Not Given Documented by: SHAWN Non-Admin Reason: No Coverage Needed Admin: 04/22/19 16:35 Dose: Not Given Documented by: STU Non-Roberto Carlos Reason: No Coverage Needed Lisinopril (Zestril) 5 mg PO DAILY [facility] Last Admin: 04/25/19 08:13 Dose: 5 mg Documented by: Admin: 04/24/19 08:32 Dose: 5 mg Documented by: Admin: 04/23/19 08:54 Dose: 5 mg Documented by: SOFI Morphine Sulfate (Morphine) 4 mg IV Q4HP PRN; Protocol PRN Reason: Per Pain Protocol Last Admin: 04/22/19 13:29 Dose: 4 mg Documented by: STU Ondansetron HCl (Zofran) 4 mg IV Q4HP PRN; Protocol PRN Reason: Nausea And Vomiting Topiramate [Trokendi (Xr] 100 Mg Tab) 1 dose PO DAILY [facility] Last Admin: 04/25/19 08:21 Dose: Not Given Documented by: MALOU Non-Admin Reason: Unavailable Admin: 04/24/19 08:33 Dose: Not Given Documented by: MALOU Non-Admin Reason: Unavailable Admin: 04/23/19 08:55 Dose: Not Given Documented by: SOFI Non-Admin Reason: Unavailable Senna (Senokot) 2 tab PO HS [facility] Last Admin: 04/24/19 21:05 Dose: 2 tab Documented by: Admin: 04/23/19 21:13 Dose: 2 tab Documented by: Admin: 04/22/19 21:25 Dose: 2 tab Documented by: SHAWN Sodium Chloride (Saline Flush) 10 ml IV Q8 [facility] Last Admin: 04/25/19 05:03 Dose: 10 ml Documented by: Admin: 04/24/19 23:08 Dose: 10 ml Documented by: Admin: 04/24/19 14:53 Dose: 10 ml Documented by: Admin: 04/24/19 05:56 Dose: Not Given Documented by: SHAWN Non-Admin Reason: Continuous IV Admin: 04/23/19 21:14 Dose: Not Given Documented by: SHAWN Non-Admin Reason: Continuous IV Admin: 04/23/19 13:27 Dose: Not Given Documented by: STU Non-Roberto Carlos Reason: Continuous IV Admin: 04/23/19 06:13 Dose: Not Given Documented by: SHAWN Non-Admin Reason: Continuous IV Admin: 04/22/19 21:35 Dose: Not Given Documented by: SHAWN Non-Admin Reason: Continuous IV Admin: 04/22/19 14:37 Dose: 10 ml Documented by: STU Throat Lozenges (Cepacol) 1 lozenge PO PRN PRN PRN Reason: Sore Throat Assessment and Plan - Narrative A/P Narrative: A: 1. Left hand deep dorsal abscess and suppurative extensor tenosynovitis: - POD 3, Debridement and irrigation of the left hand deep dorsal abscess, Debridement and irrigation of the left hand extensor tendon sheath - operative Cx growing Strept pyogenes - clinically better, s/p 3 days of IV Vanc and IV Cefazolin Recommendations: - Continue IV Ceftriaxone 2 gm q24 hrs, day 2 of abx - will plan for at least 2 weeks of IV abx with ID clinic f/u. ID clinic appt scheduled for 05/07/19 at 8 am Follow up labs: CBC, BMP weekly - pt counseled about potential side effects of Ceftriaxone including diarrhea Pritesh Tapia MD Infectious diseases
--- NOTE | 2019-04-25 15:05 | Orthopedic Progress Note ---
Subjective Patient information: Note initiated : 04/25/19 at 3:00 pm Service Date, if different from initiated Date: [] Patient: Rayshawn Cho 68 y/o M admitted on 04/22/19 for left hand cellulitis, worse. Chief Complaint: [] Principal diagnosis: Left dorsal hand deep abscess, suppurative extensor tenosynovitis Interval history: Patient doing well, no fevers or chills, pain is well controlled. Taking po well Objective Vital signs: Vital Signs Temp Pulse Resp BP Pulse Ox 04/25/19 12:00 98.2 F 69 18 146/81 96 04/25/19 07:48 69 04/25/19 07:21 97.7 F 69 18 154/87 93 04/25/19 03:21 98.6 F 70 18 153/80 96 04/24/19 23:41 98.2 F 70 18 159/85 97 04/24/19 19:16 98.3 F 68 18 115/68 94 04/24/19 16:00 98.1 F 65 18 125/73 93 Intake and Output 04/25/19 04/25/19 04/25/19 05:59 13:59 21:59 Intake Total 300 480 Output Total 3550 1350 Balance -3250 -870 Intake: Oral 300 480 Output: Void Amount 3550 1350 Other: Meal Breakfast Percent of Meal Consumed 50% Feeding Ability Independent Urine Appearance Clear Clear Urine Color Pale Straw Bright Yellow Urine Odor Normal Normal Intake & Output: Intake & Output 04/25/19 04/25/19 04/25/19 05:59 13:59 21:59 Intake Total 300 480 Output Total 3550 1350 Balance -3250 -870 Intake: Oral 300 480 Output: Void Amount 3550 1350 Other: Meal Breakfast Percent of Meal Consumed 50% Feeding Ability Independent Urine Appearance Clear Clear Urine Color Pale Straw Bright Yellow Urine Odor Normal Normal Incision: Yes healing, Yes red Incision clean and dry: Yes Dressing: Yes clean, Yes dry, Yes intact, Yes splint in place Weight bearing status: full Neurological exam IM: Yes alert, Yes oriented X3, Yes neurovascular intact - Labs CBC & BMP: 04/24/19 05:50 04/24/19 05:50 Labs: Orthopedic Labs 04/22/19 11:27 PT 13.4 INR 1.0 04/24/19 04/23/19 04/22/19 05:50 04:55 11:27 Hgb 11.0 L 12.4 L 12.7 L Hct 33.6 L 38.1 L 39.0 L Assessment and Plan - Narrative A/P Narrative: POD #3 s/p I&D left dorsal hand abscess and extensor tendon sheath doing well. Good pain control. There is decreased edema and no induration. There is still erythema , no further bullae. Showing improvement Plan: 1. Continue IV antibiotics as per Hospitalist 2. Dressing change today 3. Drain D/C'd 3. Okay to D/C home from Hand stand point.
== END 2019-04-25 16:40 | disposition home or self-care (01) | DRG 982 ==
LOC: ED 08:39 → MEDSUR 12:20
PROVIDERS: ADMIT Internal Medicine; ATTEND Internal Medicine